=== PATIENT | female | born 1965 | race African-American/Black ===

== ENCOUNTER 2021-09-29 06:35 | Emergency (ER) | payer BC ==
--- NOTE | 2021-09-29 06:57 | ER ---
Nurse's Notes [facility] Name: Piotr Gupta Age: 56 yrs Sex: Female : 1965 Arrival Date: 09/29/2021 Time: 06:43 Bed Waiting Private MD: Diagnosis: Assessment: 09/29 06:55 Reassessment: Pt told registration they were going to go to urgent care instead. vc1 ED Course: 06:43 Patient arrived in ED. bp1 Administered Medications: No medications were administered Outcome: 06:56 Patient left the ED. vc1 Signatures: Magui Fink bp1 Emily Brady, RN RN vc1
== END 2021-09-29 06:56 | disposition left against medical advice (07) ==
LOC: ER 06:35
DX: Z02.9 Encounter for administrative examinations, unspecified (principal)

== ENCOUNTER 2022-06-26 14:15 | Emergency (ER) | payer BC ==
--- OUTSIDE RECORDS SUMMARY | 2022-06-26 14:21 | XMS REPORT | Continuity of Care Document ---
:1965 Author Organization [facility] t Address [address] [facility]. [address] [place] [address] Care Team Providers Name Role Phone Pcp MD, Abril Primary Care Physician Unavailable IRMA DOBSON Attending Clinician Unavailable YARIEL NOLAND Attending Clinician Unavailable NATALIA SLADE Attending Clinician Unavailable SHENA WOLFE Attending Clinician Unavailable WILMER NARAYAN Attending Clinician Unavailable YARIEL NOLAND Attending Clinician Unavailable Yariel Noland MD Attending Clinician Unavailable Amelia Chaves MD Attending Clinician Maricruz Kelley Attending Clinician JEMIMA KU Attending Clinician Unavailable FRANK HALEY Attending Clinician Unavailable [facility] Attending Clinician Unavailable ELIUD ZEPEDA Attending Clinician Unavailable MAC, EKG- Attending Clinician Unavailable CASSIE GARCIA Attending Clinician Unavailable LAB47 Attending Clinician Unavailable LISA SCHULER Attending Clinician Unavailable NOLBERTO SALAZAR Attending Clinician Unavailable MD BEAR Attending Clinician Unavailable SNEHAL CORREA Attending Clinician Unavailable Terrell Neely MD Attending Clinician [phone] TERRELL NEELY Attending Clinician Unavailable Jean Arriaga DO Attending Clinician KOMAL LYON Attending Clinician Unavailable NIRU LAU Attending Clinician Unavailable Ginger Arevalo MD Attending Clinician GINGER AREVALO Attending Clinician Unavailable GONZALEZ LIM Attending Clinician Unavailable Jemima Ku MD Attending Clinician LEESA KNAPP Attending Clinician Unavailable Kaitlynn Yarbrough MD Attending Clinician ANTHONY PENA Attending Clinician Unavailable Yusef Crowell MD Attending Clinician SAMSON HANDY Attending Clinician Unavailable YARIEL NOLAND Admitting Clinician Unavailable Payers Payer Name Policy Type Policy Number Effective Date Expiration Date S stephanie [facility] [id number] 2018 [place] ([place] 00:00:00 CAPITATED) [id number] BLUE/ESSENTIALS 00:00:00 [facility] [id number] 2015 00:00:00 Problems Condition Condition Condition Status Onset Resolution Last Treating Co mments Source Name Details Category Date Date Treatment Clinician Date Cystocele Cystocele Disease Active [facility] prolapse prolapse [facility] 00 Center Synovial Synovial Disease Active Kelse y cyst of cyst of 3-28 Seybold left left 00:00: - popliteal popliteal 00 Exte rna space space l 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 Seybold patellae patellae 00:00: - of left of left 00 Externa knee knee l Ocular Ocular Disease Active 2012-03 Serena migraine migraine 0-08 Seybol d 00:00: - 00 Externa l Migraine Migraine Disease Active Kelse y 1-30 Seybold 00:00: - 00 Externa l Elevated Elevated Disease Active Kelse y blood blood 1-14 Seybold pressure pressure 00:00: - 00 Externa l Allergies, Adverse Reactions, Alerts Allergy Allergy Status Severity Reaction(s) Onset Inactive Treating Comm ents Source Name Type Date Date Clinician NO KNOWN Allergy Active [facility] Social History Social Habit Start Date Stop Date Quantity Comments Source Gender identity 2018-12-25 Identifies as Serena Nora 22:57:25 female gender - External (finding) Sexual orientation 2018-12-25 Heterosexual Dorinda alisa Bakerybgovind 22:57:25 (finding) - External History SDOH Serena min Alcohol Frequency - Exter nal History SDOH Serena min Alcohol Std Drinks - Exte rnal History SDOH Serena min Alcohol Binge - External Exposure to 2022-06-11 2022-06-[address] [facility] SARS-CoV-2 (event) 00:00:00 06:09:00 [facility] Alcohol intake 2022-06-21 2022-06-21 Ex-drinker [facility] 00:00:00 00:00:00 (finding) [facility] Tobacco use and 2022-06-07 2022-06-07 Smokeless tobacco Ke rocío Seybold exposure 00:00:00 00:00:00 non-user - External History of Social 2021-08-31 2021-08-31 Serena Bakerybold function 00:00:00 00:00:00 - External Alcohol Comment 2018-08-25 2018-08-25 OCCASIONAL : Q 3 Petros ashton Seybold 00:00:00 00:00:00 WEEKS - External Sex [birth year] At [birth year] F SONIA Henao 00:00:00 00:00:00 [facility] Smoking Status Start Date Stop Date Source Never smoked tobacco [facility] Medications Ordered Filled Start Stop Current Ordering Indication Dosage Frequency Signature Comments Components Source Medication Medication Date Date Medication? Clinician (SIG) Name Name Multiple Yes Take by Serena Vitamins-Mi 4-24 mouth Seybold nerals 15:20: - (MULTIVITAM 29 Externa IN ADULTS l OR) omeprazole Yes 20mg QD Take [facility] (PriLOSEC[facility]22 [facility] 20 MG 14:15: (20 mg Medical capsule 01 total) by Center mouth in the morning. rizatriptan Yes 10mg Take [address] [facility] (MAXALT-LINE REPAIRER TOWER 4-22 tablet (10 Zelda kes ) 10 MG 14:15: mg total) Medic al disintegrat 01 by mouth Cent er ing tablet as needed for Migraine May repeat in 2 hours if needed. hydrOXYzine 0 Yes 25mg Take [address] [facility] (ATARAX) 25 4-22 tablet (25 Zelda kes MG tablet 14:15: mg total) Med ical 01 by mouth 3 Center (three) times daily as needed for Itching. albuterol 2022-0 Yes .63mg Take [address] (ACCUNEB) 4-21 (0.63 mg [facility] 0.63 mg/3 14:15: total) by Med ical mL 53 nebulizati Center nebulizer on every 6 solution (six) hours as needed for Wheezing. azithromyci 0 Yes 500mg QD Take [address] [facility] n 4-21 tablet [facility] (ZITHROMAX) 14:15: (500 mg Med ical 500 MG 53 total) by Center tablet mouth in the morning. codeine-gua 0 Yes 5mL Take [address] [facility] ifenesin 4-21 by mouth 3 [facility] (GUAIFENESI 14:15: (three) Med ical N AC) 53 times Center 10-100 mg/5 daily as mL liquid needed for Cough. predniSONE 0 Yes 1mg QD Take 1 [facility] (DELTASONE) 4-21 tablet (1 Sally es 1 MG tablet 14:15: mg total) M edical 53 by mouth Center in the morning. Acetaminoph 0 Yes 1{tbl} Q4H Take 1 Ke lsey en-Codeine 4-21 tablet by Jose faust (TYLENOL/CO 00:00: mouth - DEINE #3) 00 every 4 Externa 300-30 MG hours as l oral Tablet needed for pain Docusate 2022-0 Yes [id number] 100mg Take 1 Ke lsey Sodium 100 4-21 capsule Joseol d MG oral 00:00: (100 mg - Capsule 00 total) by Externa mouth 2 l times daily TRIMETHOPRI 2022-0 2022- Yes 1{tbl} Take 1 K elsey M-SULFAMETH 4-21 04-27 tablet by Se marie OXAZOLE 00:00: 04:59 mouth - (Bactrim 00 :00 every 12 Externa DS) 800-160 hours for l MG oral 5 days Tablet traZODone 2022- No 100mg QD Take [address] [facility] (DESYREL) 4-20 04-20 tablet [facility] 100 MG 06:09: 00:00 (100 mg Medical tablet 34 :00 total) by Center mouth nightly. Omeprazole Yes 20mg Take 1 Kelse y 20 MG oral 4-17 capsule Seybol d Delayed 00:00: (20 mg - Release 00 total) by Externa Capsule mouth l daily hydroCHLORO Yes [id number] TAKE 1 Serena thiazide 4-11 CAPSULE(12 Seybo ld 12.5 MG 00:00: .5 MG) BY - oral 00 MOUTH Externa Capsule DAILY l IRON OR 2022- No Take by Serena 4-10 04-10 mouth Seybold 15:29: 00:00 - 37 :00 Externa l Multiple Yes Take by Serena Vitamins-Mi 4-10 mouth Seybold nerals 15:29: - (MULTIVITAM 36 Externa IN ADULTS l OR) hydroCHLORO Yes [id number] 12.5mg Take 1 Serena thiazide 4-10 capsule Seybold 12.5 MG 00:00: (12.5 mg - oral 00 total) by Externa Capsule mouth l daily Multiple Yes Take by Serena Vitamins-Mi 4-06 mouth Seybold nerals 10:37: - (MULTIVITAM 18 Externa IN ADULTS l OR) IRON OR Yes Take by Serena 4-06 mouth Seybold 10:37: - 18 Externa l Multiple Yes Take by Serena Vitamins-Mi 3-28 mouth Seybold nerals 13:33: - (MULTIVITAM 31 Externa IN ADULTS l OR) IRON OR Yes Take by Serena 3-28 mouth Seybold 13:33: - 31 Externa l Multiple Yes Take by Serena Vitamins-Mi 1-20 mouth Seybold nerals 10:29: - (MULTIVITAM 03 Externa IN ADULTS l OR) IRON OR Yes Take by Serena 1-20 mouth Seybold 10:29: - 03 Externa l Multiple 2021-03 Yes Take by Serena Vitamins-Mi 0-11 mouth Seybold nerals 13:50: - (MULTIVITAM 07 Externa IN ADULTS l OR) IRON OR 2021-03 Yes Take by Serena 0-11 mouth Seybold 13:50: - 07 Externa l Docusate 2021-03 Yes [id number] 100mg Take 1 Ke lsey Sodium 100 0-11 capsule Seybol d MG oral 00:00: (100 mg - Capsule 00 total) by Externa mouth 2 l times daily Polyethylen 2021-03 Yes [id number] 17g Take 17 g Serena e Glycol 0-11 by mouth Seybold 3350 00:00: daily - (MiraLax) 00 Externa 17 g oral l Pack Lidocaine 5 2021-03 Yes [id number] 1{patch Place 1 Serena % apply 0-11 } patch onto Seybol d externally 00:00: the skin - Patch 00 every 24 Externa hours l Remove & Discard patch within 12 hours or as directed by MD Hunter 2021-03 Yes [id number] 100mg Take 1 Ke lsey Sodium 100 0-11 capsule Seybol d MG oral 00:00: (100 mg - Capsule 00 total) by Externa mouth 2 l times daily Polyethylen 2021-03 Yes [id number] 17g Take 17 g Serena e Glycol 0-11 by mouth Seybold 3350 00:00: daily - (MiraLax) 00 Externa 17 g oral l Pack Lidocaine 5 2021-03 Yes [id number] UNWRAP AND Serena % apply 0-11 APPLY 1 Seybold externally 00:00: PATCH TO - Patch 00 SKIN EVERY Externa 24 HOURS; l REMOVE AND DISCARD PATCH WITHIN 12 HOURS OR DIRECTED BY MD Hunter 2021-03 Yes [id number] 100mg Take 1 Ke lsey Sodium 100 0-11 capsule Seybol d MG oral 00:00: (100 mg - Capsule 00 total) by Externa mouth 2 l times daily Polyethylen 2021-03 Yes [id number] 17g Take 17 g Serena e Glycol 0-11 by mouth Seybold 3350 00:00: daily - (MiraLax) 00 Externa 17 g oral l Pack Lidocaine 5 2021-03 Yes [id number] UNWRAP AND Serena % apply 0-11 APPLY 1 Seybold externally 00:00: PATCH TO - Patch 00 SKIN EVERY Externa 24 HOURS; l REMOVE AND DISCARD PATCH WITHIN 12 HOURS OR DIRECTED BY MD Hunter 2021-03 Yes [id number] 100mg Take 1 Ke lsey Sodium 100 0-11 capsule Seybol d MG oral 00:00: (100 mg - Capsule 00 total) by Externa mouth 2 l times daily Polyethylen 2021-03 Yes [id number] 17g Take 17 g Serena e Glycol 0-11 by mouth Seybold 3350 00:00: daily - (MiraLax) 00 Externa 17 g oral l Pack Lidocaine 2021-03 Yes [id number] UNWRAP AND Serena % apply 0-11 APPLY 1 Seybold externally 00:00: PATCH TO - Patch 00 SKIN EVERY Externa 24 HOURS; l REMOVE AND DISCARD PATCH WITHIN 12 HOURS OR DIRECTED BY MD Hunter 2021-03 Yes [id number] 100mg Take 1 Ke lsey Sodium 100 0-11 capsule Seybol d MG oral 00:00: (100 mg - Capsule 00 total) by Externa mouth 2 l times daily Lidocaine 2021-03 Yes [id number] UNWRAP AND Serena % apply 0-11 APPLY 1 Seybold externally 00:00: PATCH TO - Patch 00 SKIN EVERY Externa 24 HOURS; l REMOVE AND DISCARD PATCH WITHIN 12 HOURS OR DIRECTED BY Lidocaine 2021-03 Yes [id number] UNWRAP AND Serena % apply 0-11 APPLY 1 Seybold externally 00:00: PATCH TO - Patch 00 SKIN EVERY Externa 24 HOURS; l REMOVE AND DISCARD PATCH WITHIN 12 HOURS OR DIRECTED BY MD Demarco 2021-03- No [id number] 17g Take 17 g Serena e Glycol 0-11 04-10 by mouth Seybol d 3350 00:00: 00:00 daily - (MiraLax) 00 :00 Externa 17 g oral l Pack Cephalexin 2021- No [id number] 500mg Take 1 Serena (Keflex) 10-03 [id number] capsule Seybo ld 500 MG oral 00:00: 00:00 (500 mg - Capsule 00 :00 total) by Externa mouth 2 l times daily Mupirocin 2021- No [id number] Apply 1 Serena (BACTROBAN) 10-03 [id number] applicatio Seybold 2 % apply 00:00: 00:00 n - externally 00 :00 topically Exte rna Ointment 3 times l daily hydrOXYzine 2021-0 Yes 25mg Q.[id number] Take 1 Serena HCl 25 MG 6-13 [id number] tablet (25 Seybold oral Tablet 00:00: 3D mg total) - 00 by mouth Externa every 8 l hours as needed for itching hydrOXYzine 2021-0 Yes 25mg Q.[id number] Take 1 Serena HCl 25 MG 6-13 [id number] tablet (25 Seybold oral Tablet 00:00: 3D mg total) - 00 by mouth Externa every 8 l hours as needed for itching hydrOXYzine 2021-0 Yes 25mg Q.[id number] Take 1 Serena HCl 25 MG 6-13 [id number] tablet (25 Seybold oral Tablet 00:00: 3D mg total) - 00 by mouth Externa every 8 l hours as needed for itching hydrOXYzine 2021-0 Yes 25mg Q.[id number] Take 1 Serena HCl 25 MG 6-13 [id number] tablet (25 Seybold oral Tablet 00:00: 3D mg total) - 00 by mouth Externa every 8 l hours as needed for itching hydrOXYzine 2021-0 Yes 25mg Q.[id number] Take 1 Serena HCl 25 MG 6-13 [id number] tablet (25 Seybold oral Tablet 00:00: 3D mg total) - 00 by mouth Externa every 8 l hours as needed for itching hydrOXYzine 2021-0 Yes 25mg Q.[id number] Take 1 Serena HCl 25 MG 6-13 [id number] tablet (25 Seybold oral Tablet 00:00: 3D mg total) - 00 by mouth Externa every 8 l hours as needed for itching diazePAM 2-0 2021- No 2mg Q.25D Take 1 Kelse y (Valium) 2 07-07 tablet (2 Sey bold MG oral 00:00: 00:00 mg total) - Tablet 00 :00 by mouth Externa every 6 l hours as needed for anxiety Take tablet 30 minutes before MRI Multiple 2021-0 Yes Take by Serena Vitamins-Mi 5-03 mouth Seybold nerals 15:48: (MULTIVITAM 41 IN ADULTS OR) IRON OR Yes Take by Serena 5-03 mouth Seybold 15:48: 41 Rizatriptan Yes May repeat Serena Benzoate 5-03 in 2 hours Seybo ld (Maxalt) 10 00:00: if needed MG oral 00 Tablet Rizatriptan 0 Yes May repeat Serena Benzoate 5-03 in 2 hours Seybo ld (Maxalt) 10 00:00: if needed - MG oral 00 Externa Tablet l Rizatriptan 0 Yes May repeat Serena Benzoate 5-03 in 2 hours Seybo ld (Maxalt) 10 00:00: if needed - MG oral 00 Externa Tablet l Rizatriptan Yes May repeat Serena Benzoate 5-03 in 2 hours Seybo ld (Maxalt) 10 00:00: if needed - MG oral 00 Externa Tablet l Rizatriptan Yes May repeat Serena Benzoate 5-03 in 2 hours Seybo ld (Maxalt) 10 00:00: if needed - MG oral 00 Externa Tablet l Rizatriptan 0 Yes May repeat Serena Benzoate 5-03 in 2 hours Seybo ld (Maxalt) 10 00:00: if needed - MG oral 00 Externa Tablet l Rizatriptan 0 Yes May repeat Serena Benzoate 5-03 in 2 hours Seybo ld (Maxalt) 10 00:00: if needed - MG oral 00 Externa Tablet l Rizatriptan 0 2021- No May repeat Serena Benzoate 1-28 05-03 in 2 hours Seyb old (Maxalt) 10 00:00: 00:00 if needed MG oral 00 :00 Tablet Multiple 2020-03 Yes Take by Serena Vitamins-Mi 1-30 mouth Seybold nerals 14:04: (MULTIVITAM 09 IN ADULTS OR) IRON OR 2020-03 Yes Take by Serena 1-30 mouth Seybold 14:04: 09 Rizatriptan 2020-03 Yes May repeat Serena Benzoate 1-12 in 2 hours Seybo ld (Maxalt) 10 00:00: if needed MG oral 00 Tablet Multiple Yes Take by Serena Vitamins-Mi 11-02 mouth Seybold nerals 10:03: (MULTIVITAM 32 IN ADULTS OR) IRON OR Yes Take by Serena 11-02 mouth Seybold 10:03: 32 Omeprazole 2020-0 Yes 20mg Take 1 Kelse y 20 MG oral 5-14 capsule Seybol d Delayed 00:00: (20 mg Release 00 total) by Capsule mouth daily Omeprazole 2020-0 Yes 20mg Take 1 Kelse y 20 MG oral 5-14 capsule Seybol d Delayed 00:00: (20 mg - Release 00 total) by Externa Capsule mouth l daily Omeprazole 2020-0 Yes 20mg Take 1 Kelse y 20 MG oral 5-14 capsule Seybol d Delayed 00:00: (20 mg - Release total) by Externa Capsule mouth l daily Omeprazole 2020-0 Yes 20mg Take 1 Kelse y 20 MG oral 5-14 capsule Seybol d Delayed 00:00: (20 mg - Release total) by Externa Capsule mouth l daily Omeprazole 2020-0 Yes 20mg Take 1 Kelse y 20 MG oral 5-14 capsule Seybol d Delayed 00:00: (20 mg - Release total) by Externa Capsule mouth l daily Omeprazole 2020-0 Yes 20mg Take 1 Kelse y 20 MG oral 5-14 capsule Seybol d Delayed 00:00: (20 mg - Release total) by Externa Capsule mouth l daily Omeprazole 2020-0 Yes 20mg Take 1 Kelse y 20 MG oral 5-14 capsule Seybol d Delayed 00:00: (20 mg Release 00 total) by Capsule mouth daily Omeprazole 2020-0 Yes 20mg Take 1 Kelse y 20 MG oral 5-14 capsule Seybol d Delayed 00:00: (20 mg Release 00 total) by Capsule mouth daily Fluticasone 2020- Yes 1{puff} Inhale 1 Serena -Salmeterol 3-18 puff into Daniel bold (Advair 00:00: the lungs Diskus) 00 2 times 250-50 daily MCG/DOSE inhalation AEROSOL POWDER, BREATH ACTIVATED Fluticasone Yes 1{puff} Inhale 1 Serena -Salmeterol 3-18 puff into Sey bold (Advair 00:00: the lungs Diskus) 00 2 times 250-50 daily MCG/DOSE inhalation AEROSOL POWDER, BREATH ACTIVATED Fluticasone Yes 1{puff} Inhale 1 Serena -Salmeterol 3-18 puff into Sey bold (Advair 00:00: the lungs Diskus) 00 2 times 250-50 daily MCG/DOSE inhalation AEROSOL POWDER, BREATH ACTIVATED Rizatriptan Yes May repeat Serena Benzoate 2-04 in 2 hours Seybo ld (Maxalt) 10 00:00: if needed MG oral Tab 00 hydrOXYzine 2019-0 Yes 25mg Q.[id number] Take 1 Serena HCl 25 MG 4-27 [id number] tablet (25 Seybold oral Tab 00:00: 3D mg total) 00 by mouth every 8 hours as needed for itching hydrOXYzine 2019-0 Yes 25mg Q8H Take 1 Dorinda ey HCl 25 MG 4-27 tablet (25 Seyb old oral Tab 00:00: mg total) 00 by mouth every 8 hours as needed for itching hydrOXYzine 2019-0 Yes 25mg Q8H Take 1 Dorinda ey HCl 25 MG 4-27 tablet (25 Seyb old oral Tab 00:00: mg total) 00 by mouth every 8 hours as needed for itching albuterol Yes 1{ampul Take [address] [facility] (ACCUNEB) 7-25 e} ampule by [facility] 0.63 mg/3 14:18: nebulizati Me dical mL 59 on every 6 Center nebulizer (six) solution hours as needed for Wheezing. azithromyci Yes 500mg QD Take [address] n 7-25 mg by [facility] (ZITHROMAX) 14:18: mouth Medic al 500 MG 59 daily. Center tablet codeine-gua Yes 5mL Take [address] [address] ifenesin 7-25 by mouth 3 [facility] (GUAIFENESI 14:18: (three) Med ical N AC) 59 times Center 10-100 mg/5 daily as mL liquid needed for Cough. predniSONE Yes 1mg QD Take [address] (DELTASONE) 7-25 by mouth Luke s 1 MG tablet 14:18: daily. [facility] efraín 59 [place] traZODone Yes 100mg QD Take [address] (DESYREL) 7-25 mg by [facility] 100 MG 14:18: mouth Medical tablet 59 nightly. [place] Albuterol Yes [id number] 2{puff} Q.25D Inhale 2 Serena HFA 108 (90 7-24 6 (two) Seybold Base) 00:00: puffs into MCG/ACT IN 00 the lungs AERS every 6 hours as needed Albuterol Yes [id number] 2{puff} Q.25D Inhale 2 Serena HFA 108 (90 7-24 6 (two) Seybold Base) 00:00: puffs into - MCG/ACT IN 00 the lungs Exte rna AERS every 6 l hours as needed Albuterol Yes [id number] 2{puff} Q.25D Inhale 2 Serena HFA 108 (90 7-24 6 (two) Seybold Base) 00:00: puffs into - MCG/ACT IN 00 the lungs Exte rna AERS every 6 l hours as needed Albuterol Yes [id number] 2{puff} Q.25D Inhale 2 Serena HFA 108 (90 7-24 6 (two) Seybold Base) 00:00: puffs into - MCG/ACT IN 00 the lungs Exte rna AERS every 6 l hours as needed Albuterol 2017- Yes [id number] 2{puff} Q.25D Inhale 2 Serean HFA 108 (90 7-24 6 (two) Seybold Base) 00:00: puffs into - MCG/ACT IN 00 the lungs Exte rna AERS every 6 l hours as needed Albuterol 2017- Yes [id number] 2{puff} Q.25D Inhale 2 Serena HFA 108 (90 7-24 6 (two) Seybold Base) 00:00: puffs into - MCG/ACT IN 00 the lungs Exte rna AERS every 6 l hours as needed Albuterol 2017- Yes [id number] 2{puff} Q6H Inhale 2 Serena HFA 108 (90 7-24 6 (two) Seybold Base) 00:00: puffs into MCG/ACT IN 00 the lungs AERS every 6 hours as needed Albuterol Yes [id number] 2{puff} Q.25D Inhale 2 Serena HFA 108 (90 7-24 6 (two) Seybold Base) 00:00: puffs into - MCG/ACT IN 00 the lungs Exte rna AERS every 6 l hours as needed Albuterol Yes [id number] 2{puff} Q6H Inhale 2 Serena HFA 108 (90 7-24 6 (two) Seybold Base) 00:00: puffs into MCG/ACT IN 00 the lungs AERS every 6 hours as needed Immunizations Ordered Immunization Filled Immunization Date Status Commen ts Source Name Name Shingles IM 2022-06-12 Completed Serena Seybol d (Shingrix) 00:00:00 - External Shingles IM 2021-12-12 Completed Serena Seybol d (Shingrix) 00:00:00 - External Influenza Virus 2021-12-12 Completed Serena Se ybold Vaccine, age 6 00:00:00 - External months and up Shingles IM 2021-12-12 Completed Serena Seybol d (Shingrix) 00:00:00 - External Influenza Virus 2021-12-12 Completed Serena Se ybold Vaccine, age 6 00:00:00 - External months and up Shingles IM 2021-12-12 Completed Serena Seybol d (Shingrix) 00:00:00 - External Influenza Virus 2021-12-12 Completed Serena Se ybold Vaccine, age 6 00:00:00 - External months and up Shingles IM 2021-12-12 Completed Serena Seybol d (Shingrix) 00:00:00 - External Influenza Virus 2021-12-12 Completed Serena Se ybold Vaccine, age 6 00:00:00 - External months and up Shingles IM 2021-12-12 Completed Serena Seybol d (Shingrix) 00:00:00 - External Influenza Virus 2021-12-12 Completed Serena Se ybold Vaccine, age 6 00:00:00 - External months and up Shingles IM 2021-12-12 Completed Serena Seybol d (Shingrix) 00:00:00 - External Influenza Virus 2021-12-12 Completed Serena Se ybold Vaccine, age 6 00:00:00 - External months and up Influenza Virus 2020-11-08 Completed Serena Se ybold Vaccine, age 6 00:00:00 months and up Influenza Virus 2020-11-08 Completed Serena Se ybold Vaccine, age 6 00:00:00 - External months and up Influenza Virus 2020-11-08 Completed Serena Se ybold Vaccine, age 6 00:00:00 - External months and up Influenza Virus 2020-11-08 Completed Serena Se ybold Vaccine, age 6 00:00:00 - External months and up Influenza Virus 2020-11-08 Completed Serena Se ybold Vaccine, age 6 00:00:00 - External months and up Influenza Virus 2020-11-08 Completed Serena Se ybold Vaccine, age 6 00:00:00 - External months and up Influenza Virus 2020-11-08 Completed Serena Se ybold Vaccine, age 6 00:00:00 - External months and up Influenza Virus 2020-11-08 Completed Serena Se ybold Vaccine, age 6 00:00:00 months and up Influenza Virus 2020-11-08 Completed Serena Se ybold Vaccine, age 6 00:00:00 months and up Covid-19 Vaccine 2020-04-08 Completed Serena hyatt Moderna (Spikevax), 00:00:00 Mrna-lnp, David Protein, Pf Covid-19 Vaccine 2020-04-08 Completed Serena hyatt Moderna (Spikevax), 00:00:00 - Ext ernal Mrna-lnp, David Protein, Pf Covid-19 Vaccine 2020-04-08 Completed Serena hyatt Moderna (Spikevax), 00:00:00 - Ext ernal Mrna-lnp, David Protein, Pf Covid-19 Vaccine 2020-04-08 Completed Serena hyatt Moderna (Spikevax), 00:00:00 - Ext ernal Mrna-lnp, David Protein, Pf Covid-19 Vaccine 2020-04-08 Completed Serena hyatt Moderna (Spikevax), 00:00:00 - Ext ernal Mrna-lnp, David Protein, Pf Covid-19 Vaccine 2020-04-08 Completed Serena hyatt Moderna (Spikevax), 00:00:00 - Ext ernal Mrna-lnp, David Protein, Pf Covid-19 Vaccine 2020-04-08 Completed Serena hyatt Moderna (Spikevax), 00:00:00 - Ext ernal Mrna-lnp, David Protein, Pf Covid-19 Vaccine 2020-04-08 Completed Serena hyatt (Moderna), Mrna-lnp, 00:00:00 David Protein, Pf, 100 Mcg/0.5ml,IM Covid-19 Vaccine 2020-04-08 Completed Serena hyatt (Moderna), Mrna-lnp, 00:00:00 David Protein, Pf, 100 Mcg/0.5ml,IM Covid-19 Vaccine 2020-03-15 Completed Serena hyatt Moderna (Spikevax), 00:00:00 Mrna-lnp, David Protein, Pf Covid-19 Vaccine 2020-03-15 Completed Serena hyatt Moderna (Spikevax), 00:00:00 - Ext ernal Mrna-lnp, David Protein, Pf Covid-19 Vaccine 2020-03-15 Completed Serena hyatt Moderna (Spikevax), 00:00:00 - Ext ernal Mrna-lnp, David Protein, Pf Covid-19 Vaccine 2020-03-15 Completed Serena hyatt Moderna (Spikevax), 00:00:00 - Ext ernal Mrna-lnp, David Protein, Pf Covid-19 Vaccine 2020-03-15 Completed Serena hyatt Moderna (Spikevax), 00:00:00 - Ext ernal Mrna-lnp, David Protein, Pf Covid-19 Vaccine 2020-03-15 Completed Serena hyatt Moderna (Spikevax), 00:00:00 - Ext ernal Mrna-lnp, David Protein, Pf Covid-19 Vaccine 2020-03-15 Completed Serena hyatt Moderna (Spikevax), 00:00:00 - Ext ernal Mrna-lnp, David Protein, Pf Covid-19 Vaccine 2020-03-15 Completed Serena S eybold (Moderna), Mrna-lnp, 00:00:00 David Protein, Pf, 100 Mcg/0.5ml,IM Covid-19 Vaccine 2020-03-15 Completed Serena cuellarbold (Moderna), Mrna-lnp, 00:00:00 David Protein, Pf, 100 Mcg/0.5ml,IM Influenza Virus 2020-01-07 Completed Serena Se ybold Vaccine, age 6 00:00:00 months and up Influenza Virus 2020-01-07 Completed Serena Se ybold Vaccine, age 6 00:00:00 - External months and up Influenza Virus 2020-01-07 Completed Serena Se ybold Vaccine, age 6 00:00:00 - External months and up Influenza Virus 2020-01-07 Completed Serena Se ybold Vaccine, age 6 00:00:00 - External months and up Influenza Virus 2020-01-07 Completed Serena Se ybold Vaccine, age 6 00:00:00 - External months and up Influenza Virus 2020-01-07 Completed Serena Se ybold Vaccine, age 6 00:00:00 - External months and up Influenza Virus 2020-01-07 Completed Serena Se ybold Vaccine, age 6 00:00:00 - External months and up Influenza Virus 2020-01-07 Completed Serena Se ybold Vaccine, age 6 00:00:00 months and up Influenza Virus 2020-01-07 Completed Serena Se ybold Vaccine, age 6 00:00:00 months and up Influenza Virus 2019-01-07 Completed Serena Se ybold Vaccine, age 6 00:00:00 months and up Influenza Virus 2019-01-07 Completed Serena Se ybold Vaccine, age 5 00:00:00 - External months and up Influenza Virus 2019-01-07 Completed Serena Se ybold Vaccine, age 5 00:00:00 - External months and up Influenza Virus 2019-01-07 Completed Serena Se ybold Vaccine, age 5 00:00:00 - External months and up Influenza Virus 2019-01-07 Completed Serena Se ybold Vaccine, age 5 00:00:00 - External months and up Influenza Virus 2019-01-07 Completed Serena Se ybold Vaccine, age 5 00:00:00 - External months and up Influenza Virus 2019-01-07 Completed Serena Se ybold Vaccine, age 5 00:00:00 - External months and up Influenza Virus 2019-01-07 Completed Serena Se ybold Vaccine, age 6 00:00:00 months and up Influenza Virus 2019-01-07 Completed Serena Se ybold Vaccine, age 5 00:00:00 months and up Influenza Virus 2018-01-20 Completed Serena Se ybold Vaccine, age 5 00:00:00 months and up Influenza Virus 2018-01-20 Completed Serena Se ybold Vaccine, age 5 00:00:00 - External months and up Influenza Virus 2018-01-20 Completed Serena Se ybold Vaccine, age 5 00:00:00 - External months and up Influenza Virus 2018-01-20 Completed Serena Se ybold Vaccine, age 5 00:00:00 - External months and up Influenza Virus 2018-01-20 Completed Serena Se ybold Vaccine, age 5 00:00:00 - External months and up Influenza Virus 2018-01-20 Completed Serena Se ybold Vaccine, age 5 00:00:00 - External months and up Influenza Virus 2018-01-20 Completed Serena Se ybold Vaccine, age 5 00:00:00 - External months and up Influenza Virus 2018-01-20 Completed Serena Se ybold Vaccine, age 5 00:00:00 months and up Influenza Virus 2018-01-20 Completed Serena Se ybold Vaccine, age 5 00:00:00 months and up Influenza Virus 2016-12-27 Completed Serena Se ybold Vaccine, age 5 00:00:00 months and up Influenza Virus 2016-12-27 Completed Serena Se ybold Vaccine, age 5 00:00:00 - External months and up Influenza Virus 2016-12-27 Completed Serena Se ybold Vaccine, age 5 00:00:00 - External months and up Influenza Virus 2016-12-27 Completed Serena Se ybold Vaccine, age 5 00:00:00 - External months and up Influenza Virus 2016-12-27 Completed Serena Se ybold Vaccine, age 5 00:00:00 - External months and up Influenza Virus 2016-12-27 Completed Serena Se ybold Vaccine, age 5 00:00:00 - External months and up Influenza Virus 2016-12-27 Completed Serena Se ybold Vaccine, age 5 00:00:00 - External months and up Influenza Virus 2016-12-27 Completed Serena Se ybold Vaccine, age 5 00:00:00 months and up Influenza Virus 2016-12-27 Completed Serena Se ybold Vaccine, age 5 00:00:00 months and up MMR- Measles, Mumps, 2015-06-06 Completed Dorinda ey Seybold Rubella 00:00:00 MMR- Measles, Mumps, 2015-06-06 Completed Dorinda ey Seybold Rubella 00:00:00 - External MMR- Measles, Mumps, 2015-06-06 Completed Dorinda ey Seybold Rubella 00:00:00 - External MMR- Measles, Mumps, 2015-06-06 Completed Dorinda ey Seybold Rubella 00:00:00 - External MMR- Measles, Mumps, 2015-06-06 Completed Dorinda ey Seybold Rubella 00:00:00 - External MMR- Measles, Mumps, 2015-06-06 Completed Dorinda ey Seybold Rubella 00:00:00 - External MMR- Measles, Mumps, 2015-06-06 Completed Dorinda ey Seybold Rubella 00:00:00 - External MMR- Measles, Mumps, 2015-06-06 Completed Dorinda ey Seybold Rubella 00:00:00 MMR- Measles, Mumps, 2015-06-06 Completed Dorinda ey Seybold Rubella 00:00:00 Tdap- (Boostrix, 2015-03-24 Completed Serena S eybold Adacel) 00:00:00 Tdap- (Boostrix, 2015-03-24 Completed Serena S eybold Adacel) 00:00:00 - External Tdap- (Boostrix, 2015-03-24 Completed Serena S eybold Adacel) 00:00:00 - External Tdap- (Boostrix, 2015-03-24 Completed Serena S eybold Adacel) 00:00:00 - External Tdap- (Boostrix, 2015-03-24 Completed Serena S eybold Adacel) 00:00:00 - External Tdap- (Boostrix, 2015-03-24 Completed Serena S eybold Adacel) 00:00:00 - External Tdap- (Boostrix, 2015-03-24 Completed Serena S eybold Adacel) 00:00:00 - External Tdap- (Boostrix, 2015-03-24 Completed Serena S eybold Adacel) 00:00:00 Tdap- (Boostrix, 2015-03-24 Completed Serena Cardoza eybold Adacel) 00:00:00 Influenza Virus 2014-12-03 Completed Serena Se ybold Vaccine, age 5 00:00:00 months and up Influenza Virus 2014-12-03 Completed Serena Se ybold Vaccine, age 5 00:00:00 - External months and up Influenza Virus 2014-12-03 Completed Serena Se ybold Vaccine, age 5 00:00:00 - External months and up Influenza Virus 2014-12-03 Completed Serena Se ybold Vaccine, age 5 00:00:00 - External months and up Influenza Virus 2014-12-03 Completed Serena Se ybold Vaccine, age 5 00:00:00 - External months and up Influenza Virus 2014-12-03 Completed Serena Se ybold Vaccine, age 5 00:00:00 - External months and up Influenza Virus 2014-12-03 Completed Serena Se ybold Vaccine, age 5 00:00:00 - External months and up Influenza Virus 2014-12-03 Completed Serena Se ybold Vaccine, age 5 00:00:00 months and up Influenza Virus 2014-12-03 Completed Serena Se ybold Vaccine, age 5 00:00:00 months and up Influenza Virus 2012-11-06 Completed Serena Se ybold Vaccine, age 5 00:00:00 months and up Influenza Virus 2012-11-06 Completed Serena Se ybold Vaccine, age 5 00:00:00 - External months and up Influenza Virus 2012-11-06 Completed Serena Se ybold Vaccine, age 5 00:00:00 - External months and up Influenza Virus 2012-11-06 Completed Serena Se ybold Vaccine, age 5 00:00:00 - External months and up Influenza Virus 2012-11-06 Completed Serena Se ybold Vaccine, age 5 00:00:00 - External months and up Influenza Virus 2012-11-06 Completed Serena Se ybold Vaccine, age 5 00:00:00 - External months and up Influenza Virus 2012-11-06 Completed Serena Se ybold Vaccine, age 5 00:00:00 - External months and up Influenza Virus 2012-11-06 Completed Serena Se ybold Vaccine, age 5 00:00:00 months and up Influenza Virus 2012-11-06 Completed Serena Se ybold Vaccine, age 5 00:00:00 months and up Tdap- (Boostrix, 2005-12-13 Completed Serena S eybold Adacel) 00:00:00 Tdap- (Boostrix, 2005-12-13 Completed Serena S eybold Adacel) 00:00:00 - External Tdap- (Boostrix, 2005-12-13 Completed Serena S eybold Adacel) 00:00:00 - External Tdap- (Boostrix, 2005-12-13 Completed Serena S eybold Adacel) 00:00:00 - External Tdap- (Boostrix, 2005-12-13 Completed Serena S eybold Adacel) 00:00:00 - External Tdap- (Boostrix, 2005-12-13 Completed Serena S eybold Adacel) 00:00:00 - External Tdap- (Boostrix, 2005-12-13 Completed Serena S eybold Adacel) 00:00:00 - External Tdap- (Boostrix, 2005-12-13 Completed Serena S eybold Adacel) 00:00:00 Tdap- (Boostrix, 2005-12-13 Completed Serena S eybold Adacel) 00:00:00 Vital Signs Vital Name Observation Time Observation Value Comments Source Systolic blood 2022-06-25 114 mm[Hg] Serena Bakerosvaldool d pressure 19:25:00 - External Diastolic blood 2022-06-25 80 mm[Hg] Serena Bakerosvaldoo ld pressure 19:25:00 - External Heart rate 2022-06-25 135 /[facility] - [facility] Body temperature 2022-06-25 36.11 Lilliam [facility] :25:00 - External Respiratory rate 2022-06-25 18 /min Serena Baker old :25:00 - External Body height 2022-06-25 165.1 cm [facility] :25:00 - External Body weight 2022-06-25 72.576 [facility] - External BMI 2022-06-25 26.63 kg/m2 [facility]25:[facility] - External HEIGHT 2022-06-21 165.1 cm 06:12:00 WEIGHT 2022-06-21 73.483 kg 06:12:00 HEIGHT 2022-06-07 165.1 cm 12:35:00 WEIGHT 2022-06-07 72.576 kg 12:35:00 HEIGHT 2022-06-21 165.1 cm 06:12:00 WEIGHT 2022-06-21 73.483 kg 06:12:00 HEIGHT 2022-06-07 165.1 cm 12:35:00 WEIGHT 2022-06-07 72.576 kg 12:35:00 HEIGHT 2022-06-21 165.1 cm 06:12:00 WEIGHT 2022-06-21 73.483 kg 06:12:00 HEIGHT 2022-06-07 165.1 cm 12:35:00 WEIGHT 2022-06-07 72.576 kg 12:35:00 Systolic blood 2022-06-11 142 mm[Hg] Serena Seybol d pressure 20:28:00 - External Diastolic blood 2022-06-11 96 mm[Hg] Serena Seybo ld pressure 20:28:00 - External Heart rate 2022-06-11 98 /min Serena Seybold 20:28:00 - External Body temperature 2022-06-11 36.61 Lilliam Serena Bakeryb old 20:28:00 - External Respiratory rate 2022-06-11 18 /min Serena Bakeryb old 20:28:00 - External Body height 2022-06-11 165.1 cm Serena Seybold 20:28: - External Body weight 2022-06-11 72.576 kg Serena Seybold 20:28:00 - External BMI 2022-06-11 26.63 kg/m2 Serena Seybold 20:28:00 - External Systolic blood 2022-06-07 141 mm[Hg] Rechecked Serena Seybol d pressure 15:49:00 vitals MD - External notified pt denies headache, dizziness left in no distress. Diastolic blood 2022-06-07 92 mm[Hg] Rechecked Serena Seybo ld pressure 15:49:00 vitals, MD - External notified pt denies headache, dizziness left in no distress. Heart rate 2022-06-07 100 /min Serena Seybold 15:49:00 - External Body weight 2022-06-07 72.938 kg Serena Seybold 15:35:00 - External BMI 2022-06-07 26.76 kg/m2 Serena Seybold 15:35:00 - External Systolic blood 2022-05-29 140 mm[Hg] Serena Seybol d pressure 18:33:00 - External Diastolic blood 2022-05-29 90 mm[Hg] Serena Seybo ld pressure 18:33:00 - External Heart rate 2022-05-29 74 /min Serena Seybold 18:33:00 - External Body temperature 2022-05-29 36.67 Lilliam Serena Bakeryb old 18:33:00 - External Respiratory rate 2022-05-29 18 /min Serena Bakeryb old 18:33:00 - External Body height 2022-05-29 165.1 cm Serena Seybold 18:33:00 - External Body weight 2022-05-29 73.483 kg Serena Seybold 18:33:00 - External BMI 2022-05-29 26.96 kg/m2 Serena Seybold 18:33:00 - External Systolic blood 2022-03-23 130 mm[Hg] Serena Seybol d pressure 16:29:00 - External Diastolic blood 2022-03-23 85 mm[Hg] Serena Seybo ld pressure 16:29:00 - External Heart rate 2022-03-23 90 /min Serena Seybold 16:29:00 - External Body temperature 2022-03-23 36.67 Lilliam Serena Garcia old 16:29:00 - External Respiratory rate 2022-03-23 16 /min Serena Bakeryb old 16:29:00 - External Body weight 2022-03-23 70.761 kg Serena Seybold 16:29:00 - External BMI 2022-03-23 25.96 kg/m2 Serena Seybold 16:29:00 - External Systolic blood 2021-12-12 160 mm[Hg] Serena Seybol d pressure 18:52:00 - External Diastolic blood 2021-12-12 80 mm[Hg] Serena Seybo ld pressure 18:52:00 - External Heart rate 2021-12-12 100 /min Serena Seybold 18:52:00 - External Body temperature 2021-12-12 36.56 Lilliam Serena Bakeryb old 18:52:00 - External Respiratory rate 2021-12-12 18 /min Serena Bakeryb old 18:52:00 - External Body weight 2021-12-12 71.578 kg Serena Seybold 18:52:00 - External BMI 2021-12-12 26.26 kg/m2 Serena Seybold 18:52:00 - External Systolic blood 2021-07-04 143 mm[Hg] Serena Seybol d pressure 20:49:00 Diastolic blood 2021-07-04 88 mm[Hg] Serena Seybo ld pressure 20:49:00 Heart rate 2021-07-04 92 /min Serena Seybold 20:49:00 Body temperature 2021-07-04 36.67 Lilliam Serena Bakeryb old 20:49:00 Respiratory rate 2021-07-04 18 /min Serena Bakeryb old 20:49:00 Body height 2021-07-04 165.1 cm Serena Seybold 20:49:00 Body weight 2021-07-04 73.483 kg Serena Seybold 20:49:00 BMI 2021-07-04 26.96 kg/m2 Serena Seybold 20:49:00 Body weight 2021-01-31 70.761 kg Serena Seybold 20:03:00 BMI 2021-01-31 25.96 kg/m2 Serena Seybold 20:03:00 Systolic blood 2021-01-31 120 mm[Hg] Serena Seybol d pressure 20:03:00 Diastolic blood 2021-01-31 82 mm[Hg] Serena Seybo ld pressure 20:03:00 Heart rate 2021-01-31 88 /min Serena Seybold 20:03:00 Body temperature 2021-01-31 36.83 Lilliam Serena Bakeryb old 20:03:00 Respiratory rate 2021-01-31 16 /min Serena Bakeryb old 20:03:00 Body height 2021-01-31 165.1 cm Serena Seybold 20:03:00 Systolic blood 2020-12-05 142 mm[Hg] Serena Seybol d pressure 20:22:00 Diastolic blood 2020-12-05 82 mm[Hg] Serena Seybo ld pressure 20:22:00 Heart rate 2020-12-05 99 /min Serena Melendez 20:22:00 Body temperature 2020-12-05 36.56 Lilliam Serena Garcia old 20:22:00 Respiratory rate 2020-12-05 16 /min Serena Garcia old 20:22:00 Body height 2020-12-05 165.1 cm Serena Melendez 20:22:00 Body weight 2020-12-05 68.493 kg Serena Melendez 20:22:00 BMI 2020-12-05 25.13 kg/m2 Serena Melendez 20:22:00 WEIGHT 2020-05-16 71.668 kg 18:46:00 WEIGHT 2020-05-16 71.668 kg 18:46:00 Heart rate 2022-06-22 96 /min [facility] 07:29:25 [facility] Respiratory rate 2022-06-22 18 /min [facility] 07:29:25 [facility] Oxygen saturation 2022-06-22 98 /min [facility] Arterial blood 07:29:25 [facility] nter by Pulse oximetry Systolic blood 2022-06-22 164 mm[Hg] [facility] pressure 07[facility]28[facility]45 [facility] Diastolic blood 2022-06-22 99 mm[Hg] [facility] pressure 07:28:45 [facility] Body temperature 2022-06-[address] [facility] 07:28:14 [facility] Body height 2022-06-[address] [facility] 06:12:00 [facility] Body weight 2022-06-[address] [facility] 06:12:00 [facility] BMI 2022-06-21 26.96 kg/m2 [facility] 06:12:00 [facility] Systolic blood 2020-05-16 126 mm[Hg] [facility] pressure 21:01:00 [facility] Center Diastolic blood 2020-05-16 75 mm[Hg] [facility] pressure 21:01:00 [facility] Heart rate 2020-05-16 80 /min [facility] 21:01:00 [facility] Body temperature 2020-05-[address] [facility] 21:01:00 [facility] Respiratory rate 2020-05-16 18 /min [facility] 21:01:00 [facility] Body weight 2020-05-16 71.668 kg [facility] 18:46:00 [facility] BMI 2020-05-16 26.29 kg/m2 [facility] 18:46:00 [facility] Oxygen saturation 2020-05-16 100 [facility] 18:46[facility]00 [facility] nter by Pulse oximetry Procedures Procedure Date / Time Performing Clinician Source Performed COLPORRHAPHY, ANTERIOR 2022-06-21 07:29:00 Ludin, [facility] COLPOPEXY, VAGINAL 2022-06-21 07:29:00 Ludin [facility] EXTRAPERITONEAL APPROACH [facility] CYSTOSCOPY 2022-06-21 07:29:00 Ludin, [facility] CBC W/PLT COUNT & AUTO 2022-06-21 06:41:00 [facility] BASIC METABOLIC PANEL 2022-06-21 06:41:00 Chaves, [facility] CBC W/PLT COUNT & AUTO 2022-06-21 06[facility]41[facility], ROUTINE 2022-05-29 20:02:00 Cassie Garcia - External URINALYSIS, COMPLETE 2022-05-29 20:02:00 Cassie Garciaey Seybgovind - External URINALYSIS, COMPLETE 2022-05-29 20:02:00 Cassie Garcia [facility] - External UA/M WITH CULTURE REFLEX 2020-12-05 22:00:00 Kaitlynn Yarbroughey Nora URINE CULTURE, ROUTINE 2020-12-05 22:00:00 Kaitlynn Yarbrough [facility] MICROSCOPIC EXAMINATION 2020-12-05 22:00:00 Kaitlynn Yarbrough Seybold CBC WITH 2020-12-05 21:00:00 Kaitlynn Yarbrough old DIFFERENTIAL/PLATELET BASIC METABOLIC PANEL (7) 2020-05-16 19:57:00 Crowell, [facility] TROPONIN I 2020-05-16 19:57:00 [facility] CBC W/PLT COUNT & AUTO 2020-05-16 19:57:00 Socrates [facility] D-DIMER 2020-05-16 19:57:00 [facility] CBC W/PLT COUNT & AUTO 2020-05-16 19:57:00 Socrates [facility] XR CHEST 1 VIEW PORTABLE / 2020-05-16 19:30:00 [facility] BEDSIDE [facility] REPORT OF PROCEDURE - 2020-05-16 00:00:00 Provider [facility] ENDOSCOPY SCAN Scanning [facility] Plan of Care Planned Activity Planned Date Details Comments Source Future Scheduled 2025-03-24 DTAP/TDAP/TD VACCINES [facility] 00:00:00 (3 - Td or Tdap) [code Medic [facility] = DTAP/TDAP/TD VACCINES (3 - Td or Tdap)] Future Scheduled 2025-03-24 DTAP/TDAP/TD VACCINES [facility] 00:00:00 (3 - Td or Tdap) [code Medic [facility] = DTAP/TDAP/TD VACCINES (3 - Td or Tdap)] Future Scheduled 2024-06-20 Screening for malignant [facility] 00:00:00 neoplasm of breast Medical C enter (procedure) [code = 854869530] Future Scheduled 2023-06-[address] [facility] Test 00:00:00 Counseling and Medical Cente r Screening (12+) [code = Tobacco Cessation Counseling and Screening (12+)] Future Scheduled 2022-05-10 Screening for malignant [facility] Test 00:00:00 neoplasm of breast Medical C enter (procedure) [code = 752095321] Future Scheduled 2022-03-[address] [facility] 00:00:00 (12+) [code = Medical Center DEPRESSION SCREENING (12+)] Future Scheduled 2020-11-02 INFLUENZA VACCINE (#1) [facility] 00:00:00 [code = INFLUENZA Medical Ce nter VACCINE (#1)] Future Scheduled 2020-06-03 COVID-19 VACCINE (3 - [facility] 00:00:00 Booster for Moderna [facility] series) [code = COVID-19 VACCINE (3 - Booster for Moderna series)] Future Scheduled 2020-03-[address] [facility] 00:00:00 (12+) [code = Medical Center DEPRESSION SCREENING (12+)] Future Scheduled 2014-01-28 SHINGLES VACCINES ([address] [facility] 00:00:00 2) [code = SHINGLES Medical Center VACCINES (1 of 2)] Future Scheduled 2014-01-28 SHINGLES VACCINES ([address] [facility] 00:00:00 2) [code = SHINGLES Medical Center VACCINES (1 of 2)] Future Scheduled 2009-01-28 Lipid panel (procedure) [facility] 00:00:00 [code = [id number]] Medical Ce nter Future Scheduled 2009-01-28 Lipid panel (procedure) [facility] 00:00:00 [code = 00985426] Medical Ce nter Future Scheduled 1985-01-28 Screening for malignant [facility] 00:00:00 neoplasm of cervix Medical C enter (procedure) [code = 710958719] Future Scheduled 1985-01-28 Screening for malignant [facility] 00:00:00 neoplasm of cervix Medical C enter (procedure) [code = 657620304] Future Scheduled 1982-01-28 HEPATITIS C SCREENING [facility] 00:00:00 [code = HEPATITIS C Medical Center SCREENING] Future Scheduled 1982-01-28 HEPATITIS C SCREENING [facility] 00:00:00 [code = HEPATITIS C Medical Center SCREENING] Future Scheduled 1976 COVID-19 VACCINE (1) [facility] 00:00:00 [code = COVID-[address] VACCINE (1)] Future Scheduled 1964 CT Colonography (combo) [facility] 00:00:00 [code = CT Colonography [facility] (combo)] Future Scheduled 1964 Screening for malignant [facility] 00:00:00 neoplasm of colon Medical Ce nter (procedure) [code = 578683200] Future Scheduled 1964 Screening for malignant [facility] Test 00:00:00 neoplasm of colon Medical Ce nter (procedure) [code = 794676413] Future Scheduled 1964 Screening for malignant [facility] Test 00:00:00 neoplasm of colon Medical Ce nter (procedure) [code = 714738530] Future Scheduled 1964 Screening for malignant [facility] Test 00:00:00 neoplasm of colon Medical Ce nter (procedure) [code = 425510081] Future Scheduled 1964 Screening for malignant [facility] Test 00:00:00 neoplasm of colon Medical Ce nter (procedure) [code = 339207749] Future Scheduled 1964 Sigmoidoscopy [code = [facility] Sigmoidoscopy] Medical Cente r Encounters Start End Encounter Admission Attending Care Care Encounter Source Date/Time Date/Time Type Type Clinicians Facility Department ID 2022-09-13 2022-09-13 Outpatient SERENA DOBSON [id number] Serena 08:45:00 08:45:00 IRMA Seyb old 2022-07-04 2022-07-04 Outpatient SERENA NOLAND [id number] [facility]rena 10:30:00 10:30:00 YARIEL Seybo ld 2022-07-02 2022-07-02 Outpatient SERENA SLADE [id number] [facility]rena 16:00:00 16:00:00 NATALIA Seybol d 2022-06-27 2022-06-27 Outpatient SERENA WOLFE [id number] [facility] 15:00:00 15:00:00 SHENA Seybo ld 2022-06-26 2022-06-26 Outpatient SERENA NOLAND [id number] [facility] 00:00:00 00:00:00 YARIEL Seybo ld 2022-06-26 2022-06-26 Outpatient SERENA RIVAS [id number] [facility] 00:00:00 00:00:00 Seybol d 2022-06-25 2022-06-25 Outpatient SERENA NARAYAN [id number] Se[facility] 14:40:00 14:40:00 WILMER Seybol d 2022-06-25 2022-06-25 Outpatient SERENA DOBSON [id number] [facility] 00:00:00 00:00:00 IRMA Garcia old 2022-06-25 2022-06-25 Outpatient SERENA NOLAND [id number] [facility]rena 00:00:00 00:00:00 YARIEL min 2022-06-21 2022-06-22 Outpatient EL LUDIN, [facility] [id number] [facility] 05:52:00 14:15:00 YARIEL 2022-06-21 2022-06-22 [facility] Ludin [facility] [id number] 05:52:00 14:15:00 Encounter [facility] 2022-06-22 2022-06-22 Outpatient SERENA NOLAND [id number] Serena 00:00:00 00:00:00 YARIEL Garciao pako 2022-06-22 2022-06-22 Outpatient SERENA RIVAS [id number] [facility]rena 00:00:00 00:00:00 Seybol d 2022-06-21 2022-06-21 Surgery Ludin [facility] [id number] 07:30:00 10:00:00 [facility] 2022-06-21 2022-06-21 Anesthesia Amelia Chaves [facility] [id number] 07:29:00 09:25:00 Event Maricruz Blair [facility] 2022-06-21 2022-06-21 Outpatient SERENA NOLAND [id number] Serena 07:30:00 07:30:00 YARIEL Seybo pako 2022-06-21 2022-06-21 Travel [facility] [id number] [facility] 00:[facility]00 00:00:00 [facility] 2022-06-20 2022-06-20 Outpatient SERENA RIVAS [id number] Serena 14:00:00 14:00:00 Seybol d 2022-06-20 2022-06-20 Outpatient SERENA RIVAS [id number] Serena 11:30:00 11:30:00 Seybol d 2022-06-20 2022-06-20 Outpatient SERENA RIVAS [id number] [facility] 09:20:00 09:20:00 Seybol d 2022-06-18 2022-06-18 Outpatient SERENA KU [id number] [facility] 00:00:00 00:00:00 JEMIMA Seybol d 2022-06-17 2022-06-17 Outpatient SERENA SLADE [id number] [facility] 00:00:00 00:00:00 NATALIA Seybol d 2022-06-14 2022-06-14 Outpatient SERENA HALEY [id number] [facility] 11:30:00 11:30:00 FRANK Seybol d 2022-06-12 2022-06-12 Outpatient HANK PENA [id number] [facility] 13:45:00 13:45:00 Seybol d 2022-06-12 2022-06-12 Outpatient SERENA RIVAS [id number] [facility] 11:40:00 11:40:00 Seybol d 2022-06-12 2022-06-12 Outpatient SERENA ZEPEDA [id number] [facility] 00:00:00 00:00:00 ELIUD Seybol d 2022-06-11 2022-06-11 Outpatient SERENA SLADE [id number] [facility] 15:45:00 15:45:00 NATALIA Seybol d 2022-06-07 2022-06-07 Outpatient EL [facility] [id number] [facility] 13:04:46 23:59:00 2022-06-07 2022-06-07 [facility] [id number] 12:00:00 23:59:00 Encounter [facility] 2022-06-07 2022-06-07 Outpatient SERENA ZEPEDA [id number] Serena 11:00:00 11:00:00 ELIUD Seybol d 2022-06-07 2022-06-07 [facility] [id number] [facility] 00:[facility] 00:00:00 [facility] 2022-05-29 2022-05-29 Outpatient MAC, EKG- SERENA RIVAS [id number] Serena 15:00:00 15:00:00 Seybol d 2022-05-29 2022-05-29 Outpatient CASSIE GARCIA SERENA SERENA [id number] Se[facility] 13:40:00 13:40:00 Seybol d 2022-05-04 2022-05-04 Outpatient SERENA RIVAS [id number] [facility] 16:00:00 16:00:00 Seybol d 2022-05-04 2022-05-04 Outpatient DUANE SERENA RIVAS [id number] [facility] 15:00:00 15:00:00 ELIUD Seybol d 2022-04-17 2022-04-17 Outpatient SERENA RIVAS [id number] [facility] 00:00:00 00:00:00 Seybol d 2022-04-17 2022-04-17 Outpatient SERENA NOLAND [id number] [facility] 00:00:00 00:00:00 YARIEL Seybo ld 2022-04-13 2022-04-13 Outpatient LAB47 SERENA RIVAS [id number] [facility] 11:10:00 11:10:00 Seybol d 2022-04-10 2022-04-10 Outpatient LAB47 SERENA RIVAS [id number] Serena 15:55:00 15:55:00 Seybol d 2022-03-27 2022-03-27 Outpatient CASSIE GARCIA SERENA RIVAS [id number] [facility] 13:40:00 13:40:00 Seybol d 2022-03-24 2022-03-24 Outpatient SERENA NOLAND [id number] [facility] 00:00:00 00:00:00 YARIEL Seybo ld 2022-03-23 2022-03-23 Outpatient SERENA NOLAND [id number] [facility] 10:00:00 10:00:00 YARIEL Seybo ld 2022-03-02 2022-03-02 Outpatient SERENA SCHULER [id number] [facility] 13:30:00 13:30:00 AYSENUR Seybol d 2022-03-01 2022-03-01 Outpatient OKSERENA VILLARREAL [id number] [place] 14:00:00 14:00:00 NOLBERTO Seybol d 2021-12-15 2021-12-15 Outpatient ANDRÉS SERENA RVIAS [id number] [facility] 00:00:00 00:00:00 MD GISEL Seybol d 2021-12-15 2021-12-15 Outpatient SERENA CORREA [id number] [facility] 00:00:00 00:00:00 SNEHAL Seybol d 2021-12-14 2021-12-14 Outpatient SERENA CORREA [id number] [place] 14:00:00 14:00:00 SNEHAL Seybol d 2021-12-12 2021-12-12 Outpatient SERENA ASLAZAR [id number] [place] 14:00:00 14:00:00 NOLBERTO Seybol d 2021-12-07 2021-12-07 Outpatient SERENA CORREA [id number] [place] 15:00:00 15:00:00 SNEHAL Seybol d 2021-12-05 2021-12-05 Outpatient SERENA SALAZAR [id number] [place] 11:15:00 11:15:00 NOLBERTO Seybol d 2021-10-10 2021-10-10 Outpatient SERENA DOBSON [id number] Serena 16:00:00 16:00:00 IRMA Seyb old 2021-10-03 2021-10-03 Office Alton Neely [id number] [place] 14:15:00 14:30:00 Visit Terrell Gregg 350.1.13.13 Se ybold Somogyi 1.2.7.2.686 [id number] 2021-10-03 2021-10-03 Outpatient SERENA NEELY [id number] [place] 00:00:00 00:00:00 TERRELL Seybol d 2021-09-29 2021-09-29 Office Alton Neely [id number] [place] 08:30:00 08:45:00 Visit Terrell Gregg 350.1.13.13 Se ybold Somogyi 1.2.7.2.686 [id number] 2021-08-31 2021-08-31 Office FLOYD Arriaga [id number] [place]rena 16:30:00 17:00:00 Visit [facility] 350.1.13.13 Seybold DIAGNOSTI 1.2.7.2.686 [facility] [id number] 2021-08-15 2021-08-15 Outpatient SERENA LYON [id number] [place] 00:00:00 00:00:00 KOMAL Garciao ld 2021-08-07 2021-08-07 Outpatient SERENA RIVAS [id number] [place] 15:00:00 15:00:00 Seybol d 2021-07-07 2021-07-07 Outpatient SERENA LYON [id number] [place] 00:00:00 00:00:00 KOMAL min 2021-07-07 2021-07-07 Outpatient SERENA LYON [id number] [place] 00:00:00 00:00:00 KOMAL Bakerybo ld 2021-07-06 2021-07-06 Outpatient SERENA LAU [id number] [place] 00:00:00 00:00:00 NIRU Garciaol d 2021-07-06 2021-07-06 Outpatient SERENA LYON [id number] [place] 00:00:00 00:00:00 KOMAL Garciao ld 2021-07-04 2021-07-04 Office HANK Arevalo 1.2.840.114 [id number] [place] 16:15:00 16:30:00 Visit [facility] 350.1.13.13 Seybold 1.2.7.2.686 [id number] 2021-07-04 2021-07-04 Outpatient SERENA RIVAS [id number] [place] 13:45:00 13:45:00 Seybol d 2021-07-04 2021-07-04 Outpatient SERENA LYON [id number] [place] 00:00:00 00:00:00 KOMAL min 2021-06-30 2021-06-30 Outpatient SERENA LYON [id number] [place] 11:30:00 11:30:00 KOMAL Seybo ld 2021-06-30 2021-06-30 Outpatient SERENA LYON [id number] [place] 00:00:00 00:00:00 KOMAL Seybo ld 2021-06-15 2021-06-15 Outpatient SERENA LYON [id number] [place] 14:30:00 14:30:00 KOMAL Seybo ld 2021-03-31 2021-03-31 Outpatient [facility] SERENA RIVAS [id number] [place] 00:00:00 00:00:00 MD GISEL Seybol d 2021-03-30 2021-03-30 Outpatient SERENA AREVALO [id number] [place] 00:00:00 00:00:00 GINGER Seybol d 2021-03-22 2021-03-22 Outpatient SERENA LYON [id number] [place] 00:00:00 00:00:00 KOMAL Seybo ld 2021-03-17 2021-03-17 Outpatient SERENA RIVAS [id number] [place] 16:00:00 16:00:00 Seybol d 2021-03-10 2021-03-10 Outpatient LAB SERENA RIVAS [id number] [place] 11:45:00 11:45:00 Seybol d 2021-03-10 2021-03-10 Outpatient SERENA LYON [id number] [place] 10:45:00 10:45:00 KOMAL Seybo ld 2021-03-02 2021-03-02 Outpatient SERENA LYON [id number] [place] 15:45:00 15:45:00 KOMAL Seybo ld 2021-02-15 2021-02-15 Outpatient SERENA LYON [id number] [place] 00:00:00 00:00:00 KOMAL Seybo ld 2021-02-08 2021-02-08 Outpatient SERENA DOBSON [id number] [place] 10:45:00 10:45:00 IRMA Seyb old 2021-02-07 2021-02-07 Outpatient SERENA LIM [id number] [place] 00:00:00 00:00:00 RHONDAH Seybol d 2021-01-31 2021-01-31 Office FLOYD Ku [id number] [place] 14:00:00 14:15:00 Visit Jemima TREJO 350.1.13.13 Seybold DIAGNOSTI 1.2.7.2.686 [facility] [id number] 2021-01-31 2021-01-31 Outpatient ANDRÉS RIVAS [id number] [place] 00:00:00 00:00:00 MD GISEL Seybol d 2020-12-28 2020-12-28 Outpatient LEESA KNAPP [id number] [place] 09:15:00 09:15:00 Seybol d 2020-12-14 2020-12-14 Outpatient LEESA KNAPP [id number] [place] 13:15:00 13:15:00 Seybol d 2020-12-13 2020-12-13 Outpatient SERENA RIVAS [id number] [place] 08:45:00 08:45:00 Seybol d 2020-12-05 2020-12-05 Outpatient LAB47 SERENA RIVAS [id number] [place] 15:55:00 15:55:00 Seybol d 2020-12-05 2020-12-05 Office ANTHONY Yarbrough [id number] [place] 14:58:28 15:13:28 Visit Kaitlynn 350.1.13.13 Se ybold 1.2.7.2.686 [id number] 2020-11-14 2020-11-14 Outpatient INJ, SERENA RIVAS [id number] [place] 16:00:00 16:00:00 ANTHONY Garciao ld 2020-11-11 2020-11-11 Outpatient INJ, SERENA RIVAS [id number] [place] 14:00:00 14:00:00 ANTHONY Garciao ld 2020-11-09 2020-11-09 Outpatient LAB47 SERENA RIVAS [id number] [place] 11:30:00 11:30:00 Seybol d 2020-11-08 2020-11-08 Outpatient LAB47 SERENA RIVAS [id number] [place] 13:30:00 13:30:00 Seybol d 2020-11-08 2020-11-08 Outpatient SERENA PENA [id number] [place] 13:00:00 13:00:00 PEARLAND Seybo ld 2020-11-03 2020-11-03 Outpatient SERENA KU [id number] [place] 00:00:00 00:00:00 JEMIMA Seybol d 2020-11-02 2020-11-02 Outpatient LEESA KNAPP [id number] [place] 10:15:00 10:15:00 Seybol d 2020-11-02 2020-11-02 Outpatient SERENA DOBSON [id number] [place] 00:00:00 00:00:00 IRMA Seyb old 2020-10-26 2020-10-26 Outpatient LEESA KNAPP [id number] [place] 15:00:00 15:00:00 Seybol d 2020-10-20 2020-10-20 Outpatient LAB47 SERENA RIVAS [id number] [place] 12:00:00 12:00:00 Seybol d 2020-10-19 2020-10-19 Outpatient LAB47 SERENA RIVAS [id number] [place] 09:55:00 09:55:00 Seybol d 2020-10-19 2020-10-19 Outpatient SERENA RIVAS [id number] [place] 09:35:00 09:35:00 Seybol d 2020-10-19 2020-10-19 Outpatient LEESA KNAPP [id number] [place] 09:00:00 09:00:00 Seybol d 2020-10-15 2020-10-15 Outpatient ANDRÉS RIVAS [id number] [place] 00:00:00 00:00:00 MD GISEL Seybol d 2020-10-10 2020-10-10 Outpatient SERENA KU [id number] [place] 11:15:00 11:15:00 JEMIMA Seybol d 2020-05-16 2020-05-16 Emergency ER Yusef Crowell [facility] [id number] [facility] 18:59:00 21:28:00 [facility] 2020-05-16 2020-05-16 Emergency ER [facility] [id number] [facility] 18:30:00 18:30:00 Results Test Description Test Time Test Comments Results Result Comments Source BASIC METABOLIC PANEL 2022-06-21 07:25:03 Test Item Value Reference Range Interpretation Comme nts SODIUM (BEAKER) (test 142 meq/L 136-145 code = 381) POTASSIUM (BEAKER) 3.9 meq/L 3.5-5.1 (test code = 379) CHLORIDE (BEAKER) (test 107 meq/L 98-107 code = 382) CO2 (BEAKER) (test code 28 meq/L 22-29 = 355) BLOOD UREA NITROGEN 12 mg/dL 7-21 (BEAKER) (test code = 354) CREATININE (BEAKER) 0.85 mg/dL 0.57-1.25 (test code = 358) GLUCOSE RANDOM (BEAKER) 131 mg/dL 70-105 H (test code = 652) CALCIUM (BEAKER) (test 9.4 mg/dL 8.4-10.2 code = 697) EGFR (BEAKER) (test 79 mL/min/1.73 sq In terpretation of eGFR values code = 1092) m Stage Descripti on Result G1 Normal or high >=90 G2 Mildly decreased 60-89 G3a Mildly to moderately 45-5 9 G3b Moderately to severely 30- 44 G4 Severly decreased 15-29 G5 Kidney failure <15Repo rted eGFR is based on the CK D-EPI 2020 equation that d oes not use a race coefficien tEstimated GFR is not as accurate as Creatinine Clearance in pr edicting glomerular filt ration rate. Estimated GFR i s not applicable for dialysis georges haro Clinical Quality Rn ID - [id number] W/PLT COUNT & AUTO [id number] 07:05:40 Test Item Value Reference Range Interpretation Comments WHITE BLOOD CELL COUNT (BEAKER) 6.1 K/ L 3.5-10.5 (test code = 775) RED BLOOD CELL COUNT (BEAKER) 4.37 M/ L 3.93-5.22 (test code = 761) HEMOGLOBIN (BEAKER) (test code = 12.9 GM/DL 11.2-15.7 410) HEMATOCRIT (BEAKER) (test code = 40.0 % 34.1-44.9 411) MEAN CORPUSCULAR VOLUME (BEAKER) 92 fL 79-95 (test code = 753) MEAN CORPUSCULAR HEMOGLOBIN 29.5 pg 25.6-32.2 (BEAKER) (test code = 751) MEAN CORPUSCULAR HEMOGLOBIN CONC 32.3 GM/DL 32.2-35.5 (BEAKER) (test code = 752) RED CELL DISTRIBUTION WIDTH 12.4 % 11.7-14.4 (BEAKER) (test code = 412) PLATELET COUNT (BEAKER) (test 243 K/CU MM 150-450 code = 756) MEAN PLATELET VOLUME (BEAKER) 9.6 fL 9.4-12.3 (test code = 754) NUCLEATED RED BLOOD CELLS 0 /100 WBC 0-0 (BEAKER) (test code = 413) NEUTROPHILS RELATIVE PERCENT 42 % (BEAKER) (test code = 429) LYMPHOCYTES RELATIVE PERCENT 47 % (BEAKER) (test code = 430) MONOCYTES RELATIVE PERCENT 6 % (BEAKER) (test code = 431) EOSINOPHILS RELATIVE PERCENT 4 % (BEAKER) (test code = 432) BASOPHILS RELATIVE PERCENT 1 % (BEAKER) (test code = 437) NEUTROPHILS ABSOLUTE COUNT 2.60 K/ L 1.56-6.13 (BEAKER) (test code = 670) LYMPHOCYTES ABSOLUTE COUNT 2.85 K/ L 1.18-3.74 (BEAKER) (test code = 414) MONOCYTES ABSOLUTE COUNT (BEAKER) 0.39 K/ L 0.24-0.36 H (test code = 415) EOSINOPHILS ABSOLUTE COUNT 0.24 K/ L 0.04-0.36 (BEAKER) (test code = 416) BASOPHILS ABSOLUTE COUNT (BEAKER) 0.03 K/ L 0.01-0.08 (test code = 417) IMMATURE GRANULOCYTES-RELATIVE 0.30 % 0.00-1.00 PERCENT (BEAKER) (test code = 2801) UA/M WITH CULTURE [id number] 09:08:00 Test Item Value Reference Range Interpretation Comments SPECIFIC GRAVITY 1.005-1.030 (test code = 2965-2) PH (test code = 5.0-7.5 5803-2) URINE-COLOR (test Yellow Yellow code = 5778-6) APPEARANCE (test code Clear Clear = 5767-9) WBC ESTERASE (test 1+ Negative A code = 5799-2) PROTEIN (test code = Negative Negative/Trace 31285-0) GLUCOSE (test code = Negative Negative 2349-9) KETONES (test code = Negative Negative 2514-8) OCCULT BLOOD (test Negative Negative code = 5794-3) BILIRUBIN (test code Negative Negative = 5770-3) UROBILINOGEN,SEMI-QN 0.2 mg/dL 0.2-1.0 (test code = 39927-7) NITRITE, URINE (test Negative Negative code = 5802-4) MICROSCOPIC See below: Microscopic was EXAMINATION (test indicated and was code = 38199-8) performed. URINALYSIS REFLEX This speci men has (test code = 939583) reflexe d to a Urine Culture. JAVID (test code = JAVID) [facility] results reported in Eastern Time. [facility] Clinical Information:SRC :Urine ?[facility] Source of Specimen:Urine Lab Interpretation Abnormal (test code = 52503-2) Serena SeyboldMICROSCOPIC [id number] 09:08:00 Test Item Value Reference Range Interpretation Comments WBC (test code = 30 See_Comment A [Automated 5821-4) message] The system which generated this result transmit arsenio reference range : 0 - 5 /hpf. The reference range was not used to interpret this result as normal/abnormal . RBC (test code = None seen See_Comment [Automated 20217-1) message] The system which generated this result transmit arsenio reference range : 0 - 2 /hpf. The reference range was not used to interpret this result as normal/abnormal . EPITHELIAL CELLS (NON >10 See_Comment A [Auto mated RENAL) (test code = message] The 5787-7) system which generated this result transmit arsenio reference range : 0 - 10 /hpf. The reference range was not used to interpret this result as normal/abnormal . CASTS (test code = None seen None seen /lpf 20096-9) BACTERIA (test code = None seen None seen/Few 5769-5) JAVID (test code = JAVID) [facility] results reported in Eastern Time. [facility] Clinical Information:SRC :Urine ?[facility] Source of Specimen:Urine Lab Interpretation Abnormal (test code = 64743-2) Serena Naqvi CULTURE, [id number] 09:08:00 Test Item Value Reference Range Interpretation Comments RESULT 1 (test code = No growth 630-4) JAVID (test code = JAVID) [facility] results reported in Eastern Time. [facility] Clinical Information:SRC:Urine ?[facility] Source of Specimen:Urine Serena ViramontesC WITH DIFFERENTIAL/[id number] 09:08:00 Test Item Value Reference Range Interpretation Comments WHITE BLOOD CELL See_Comment [Automated (WBC) COUNT (test message] T he code = 6690-2) system which generated this result transmit arsenio reference range : 3.4 - 10.8 x10E3/uL. The reference range was not used to interpret this result as normal/abnormal . RED BLOOD CELL (RBC) See_Comment [Autom ated COUNT (test code = message] The 789-8) system which generated this result transmit arsenio reference range : 3.77 - 5.28 x10E6/uL. The reference range was not used to interpret this result as normal/abnormal . HEMOGLOBIN (test code 12.1 g/dL 11.1-15.9 = 718-7) HEMATOCRIT (test code 38.6 % 34.0-46.6 = 4544-3) MCV (test code = 88 fL 79-97 787-2) MCH (test code = 27.6 pg 26.6-33.0 785-6) MCHC (test code = 31.3 g/dL 31.5-35.7 L 786-4) RDW (test code = 13.7 % 11.7-15.4 788-0) PLATELETS (test code See_Comment [Autom ated = 777-3) message] The system which generated this result transmit arsenio reference range : 150 - 450 x10E3/uL. The reference range was not used to interpret this result as normal/abnormal . NEUTROPHILS (test 44 % Not Estab. code = 770-8) LYMPHS (test code = 43 % Not Estab. 736-9) MONOCYTES (test code 9 % Not Estab. = 5905-5) EOS (test code = 3 % Not Estab. 713-8) BASOS (test code = 1 % Not Estab. 706-2) NEUTROPHILS See_Comment [Automated (ABSOLUTE) (test code messag e] The = 751-8) system which generated this result transmit arsenio reference range : 1.4 - 7.0 x10E3/uL. The reference range was not used to interpret this result as normal/abnormal . LYMPHS (ABSOLUTE) See_Comment [Automate d (test code = 731-0) message] The system which generated this result transmit arsenio reference range : 0.7 - 3.1 x10E3/uL. The reference range was not used to interpret this result as normal/abnormal . MONOCYTES(ABSOLUTE) See_Comment [Automa arsenio (test code = 742-7) message] The system which generated this result transmit arsenio reference range : 0.1 - 0.9 x10E3/uL. The reference range was not used to interpret this result as normal/abnormal . EOS (ABSOLUTE) (test See_Comment [Autom ated code = 711-2) message] The system which generated this result transmit arsenio reference range : 0.0 - 0.4 x10E3/uL. The reference range was not used to interpret this result as normal/abnormal . BASO (ABSOLUTE) (test See_Comment [Auto mated code = 704-7) message] The system which generated this result transmit arsenio reference range : 0.0 - 0.2 x10E3/uL. The reference range was not used to interpret this result as normal/abnormal . IMMATURE GRANULOCYTES 0 % Not Estab. (test code = 72281-7) IMMATURE GRANS (ABS) See_Comment [Autom ated (test code = 12224-3) messag e] The system which generated this result transmit arsenio reference range : 0.0 - 0.1 x10E3/uL. The reference range was not used to interpret this result as normal/abnormal . JAVID (test code = JAVID) [facility] results reported in Eastern Time. [facility] Clinical Information:SRC :Blood, venous*Venipunc ture ? [facility] Source of Specimen:Blood, venous*Venipunc Lab Interpretation Abnormal (test code = 30698-4) Serena MelendezD-dimer, [id number] 20:27:00 Test Item Value Reference Range Interpretation Comments D-Dimer, Quant (test 0.93 See_Comment H Final I nformation code = 51303-3) (Auto Output ) [Automated message] The system which generated this result transmitted reference range : <0.50 MG/L FEU. The reference range was not used to interpr et this result as normal/abnormal . JAVID (test code = REGARDING D-DIMER JAVID) RESULTS: The 98% NPV (Negative Predictive Value) for DVT/PE exclusion is 0.50 mg/L FEU as suggested by the clinical quality rn and as approved by the FDA. Lab Interpretation Abnormal (test code = 64460-5) [id number] 20:27:00 Test Item Value Reference Range Interpretation Comments D-DIMER QUANTITATIVE 0.93 MG/L FEU <0.50 H Final Information (BEAKER) (test code = (Auto Output) 671) REGARDING D-DIMER RESULTS: The 98% NPV (Negative Predictive Value) for DVT/PE exclusion is 0.50 mg/LFEU as suggested by the clinical quality rn and as approved by the FDA.Troponin [id number] 20:26:00 Test Item Value Reference Range Interpretation Comments Troponin I (test code = <0.03 0.00-0.15 51470-6) JAVID (test code = JAVID) Troponin I (TnI) levels must be interpreted in the context of the presenting symptoms and the clinical findings. Elevated TnI levels indicate myocardial damage, but are not specific for ischemic heart disease. Elevated TnI levels are seen in patients with other cardiac conditions (including myocarditis and congestive heart failure), and slight TnI elevations occur in patients with other conditions, including sepsis, renal failure, acidosis, acute neurological disease, and persistent tachyarrhythmia.Opera tor ID - [id number] Lab Interpretation (test Normal code = 66932-1) [facility] [id number] 20:26:00 Test Item Value Reference Range Interpretation Comments TROPONIN I (BEAKER) (test code = 397) < ng/mL 0.00-0.15 Troponin I (TnI) levels must be interpreted in the context of the presenting symptoms and the clinical findings. Elevated TnI levels indicate myocardial damage, but are not specific for ischemic heart disease. Elevated TnI levels are seen in patients with other cardiac conditions (including myocarditis and congestive heart failure), and slight TnI elevations occur in patients with other conditions, including sepsis, renal failure, acidosis, acute neurological disease, and persistent tachyarrhythmia.Clinical Quality Rn ID - [id number], CHEST, 1 VIEW, NON [id number] 20:22:00Reason for exam:->Chest Pain [facility] : 1965 Sex: FFINAL REPORT History: Chest pain. Comparison: 09/25/2017 Findings: A single view of the chest is submitted. The cardiomediastinal contours are unremarkable. There is no focal consolidation, pneumothorax, large pleural effusion or evidence of overt pulmonary edema. There is no acute bony abnormality. Impression: No acute abnormality. Signed: Suzan Bustillo [facility] Verified Date/Time:05/16/2020 20:22:14 Basic metabolic [id number] 20:19:00 Test Item Value Reference Range Interpretation Comments Sodium (test code = 140 meq/L 161-139 6367-2) Potassium (test code = 4.1 meq/L 3.6-5.5 Speci men 2823-3) moderately hemolyzed Chloride (test code = 106 meq/L 98-106 2075-0) CO2 (test code = 24 meq/L -29 2027-9) BUN (test code = 8 mg/dL 10-26 L 3094-0) Creatinine (test code 0.83 mg/dL 0.50-1.20 Specim en = 2160-0) moderately hemolyzed Glucose (test code = 85 mg/dL 70-110 2345-7) Calcium (test code = 9.1 mg/dL 8.5-10.5 54522-8) EGFR (test code = 86 mL/min/1.73 [place] [address]-8) NOT ACCURATE CREATININE CLEARANCE IN PREDICTING GLOMERULAR FILTRATION RATE . ESTIMATED GFR I S NOT APPLICABLE FOR DIALYSIS PATIENTS. JAVID (test code = JAVID) Clinical Quality Rn ID - [id number] r ID - [id number] r ID - [id number] r ID - [id number] r ID - [id number] r ID - [id number] r ID - [id number] r ID - [id number] r ID - [id number] r ID - [id number] r ID - [id number] r ID - [id number] Lab Interpretation Abnormal (test code = 44651-0) [facility] METABOLIC [id number] 20:19:00 Test Item Value Reference Range Interpretation Comments SODIUM (BEAKER) 140 meq/L 135-148 (test code = 381) POTASSIUM (BEAKER) 4.1 meq/L 3.6-5.5 Specimen moderately (test code = 379) hemolyzed CHLORIDE (BEAKER) 106 meq/L 98-106 (test code = 382) CO2 (BEAKER) (test 24 meq/L 20-29 code = 355) BLOOD UREA NITROGEN 8 mg/dL 10-26 L (BEAKER) (test code = 354) CREATININE (BEAKER) 0.83 mg/dL 0.50-1.20 Specimen moderately (test code = 358) hemolyzed GLUCOSE RANDOM 85 mg/dL 70-110 (BEAKER) (test code = 652) CALCIUM (BEAKER) 9.1 mg/dL 8.5-10.5 (test code = 697) EGFR (BEAKER) (test 86 mL/min/1.73 ESTIMA ARSENIO GFR IS code = 1092) sq m NOT ACCURATE CREATININE CLEARANCE IN PREDICTING GLOMERULAR FILTRATION RATE . ESTIMATED GFR I S NOT APPLICABLE FOR DIALYSIS PATIEN TS. Clinical Quality Rn ID - [id number] ID - [id number] ID - [id number] ID - [id number] ID - [id number] ID - [id number] ID - [id number] ID - [id number] ID - [id number] ID - [id number] ID - [id number] ID - [id number] with platelet count + automated [id number] 20:08:00 Test Item Value Reference Range Interpretation Comments WBC (test code = 6690-2) 7.8 See_Comment [A utomated message] The system [employer] generated this result transmitted ref erence range: 4.0 - 10 .0 K/L. The refe rence range was not u sed to interpret this result as normal/abnor mal. RBC (test code = 789-8) 4.22 See_Comment [Au tomated message] The system [employer] generated this result transmitted ref erence range: 4.00 - 5 .00 M/L. The refe rence range was not u sed to interpret this result as normal/abnor mal. MCHC (test code = 786-4) 29.9 See_Comment L [A utomated message] The system [employer] generated this result transmitted ref erence range: 32.0 - 3 6.0 GM/DL. The refe rence range was not u sed to interpret this result as normal/abnor mal. Hematocrit (test code = 37.1 % 36.0-46.0 4544-3) MCV (test code = 787-2) 87.9 fL 82.0-99.0 MCH (test code = 785-6) 26.3 pg 27.0-33.0 L RDW (test code = 788-0) 15.1 % 12.0-15.0 H Platelets (test code = 294 See_Comment [Aut omated message] 777-3) The system [employer] generated this result transmitted ref erence range: 150 - 43 0 K/CU MM. The referen ce range was not u sed to interpret this result as normal/abnor mal. MPV (test code = 9.8 fL 6.0-11.5 74466-8) nRBC (test code = 413) 0 See_Comment [Aut omated message] The system [employer] generated this result transmitted ref erence range: 0 - 0 /1 00 WBC. The refere nce range was not u sed to interpret this result as normal/abnor mal. % Neutros (test code = 47 % 429) % Lymphs (test code = 40 % 430) % Monos (test code = 9 % 431) % Eos (test code = 432) 3 % % Baso (test code = 437) 0 % # Neutros (test code = 3.68 See_Comment [Aut omated message] 670) The system [employer] generated this result transmitted ref erence range: 1.80 - 8 .00 K/L. The refe rence range was not u sed to interpret this result as normal/abnor mal. # Lymphs (test code = 3.11 See_Comment [Auto mated message] 414) The system [employer] generated this result transmitted ref erence range: 1.48 - 4 .50 K/L. The refe rence range was not u sed to interpret this result as normal/abnor mal. # Monos (test code = 0.73 See_Comment [Autom ated message] 415) The system [employer] generated this result transmitted ref erence range: 0.00 - 1 .30 K/L. The refe rence range was not u sed to interpret this result as normal/abnor mal. # Eos (test code = 416) 0.21 See_Comment [Au tomated message] The system [employer] generated this result transmitted ref erence range: 0.00 - 0 .50 K/L. The refe rence range was not u sed to interpret this result as normal/abnor mal. # Baso (test code = 417) 0.03 See_Comment [A utomated message] The system [employer] generated this result transmitted ref erence range: 0.00 - 0 .20 K/L. The refe rence range was not u sed to interpret this result as normal/abnor mal. Immature 0 % 0-0 Granulocytes-Relative (test code = 2801) Lab Interpretation (test Abnormal code = 85376-6) [facility] W/PLT COUNT & AUTO [id number] 20:08:00 Test Item Value Reference Range Interpretation Comments WHITE BLOOD CELL COUNT (BEAKER) 7.8 K/ L 4.0-10.0 (test code = 775) RED BLOOD CELL COUNT (BEAKER) 4.22 M/ L 4.00-5.00 (test code = 761) HEMOGLOBIN (BEAKER) (test code = 11.1 GM/DL 12.0-15.5 L 410) HEMATOCRIT (BEAKER) (test code = 37.1 % 36.0-46.0 411) MEAN CORPUSCULAR VOLUME (BEAKER) 87.9 fL 82.0-99.0 (test code = 753) MEAN CORPUSCULAR HEMOGLOBIN 26.3 pg 27.0-33.0 L (BEAKER) (test code = 751) MEAN CORPUSCULAR HEMOGLOBIN CONC 29.9 GM/DL 32.0-36.0 L (BEAKER) (test code = 752) RED CELL DISTRIBUTION WIDTH 15.1 % 12.0-15.0 H (BEAKER) (test code = 412) PLATELET COUNT (BEAKER) (test 294 K/CU MM 150-430 code = 756) MEAN PLATELET VOLUME (BEAKER) 9.8 fL 6.0-11.5 (test code = 754) NUCLEATED RED BLOOD CELLS 0 /100 WBC 0-0 (BEAKER) (test code = 413) NEUTROPHILS RELATIVE PERCENT 47 % (BEAKER) (test code = 429) LYMPHOCYTES RELATIVE PERCENT 40 % (BEAKER) (test code = 430) MONOCYTES RELATIVE PERCENT 9 % (BEAKER) (test code = 431) EOSINOPHILS RELATIVE PERCENT 3 % (BEAKER) (test code = 432) BASOPHILS RELATIVE PERCENT 0 % (BEAKER) (test code = 437) NEUTROPHILS ABSOLUTE COUNT 3.68 K/ L 1.80-8.00 (BEAKER) (test code = 670) LYMPHOCYTES ABSOLUTE COUNT 3.11 K/ L 1.48-4.50 (BEAKER) (test code = 414) MONOCYTES ABSOLUTE COUNT (BEAKER) 0.73 K/ L 0.00-1.30 (test code = 415) EOSINOPHILS ABSOLUTE COUNT 0.21 K/ L 0.00-0.50 (BEAKER) (test code = 416) BASOPHILS ABSOLUTE COUNT (BEAKER) 0.03 K/ L 0.00-0.20 (test code = 417) IMMATURE GRANULOCYTES-RELATIVE 0 % 0-0 PERCENT (BEAKER) (test code = 2801) CT, CHEST WITH IV CONTRAST- PE TEST [id number] 16:31:00Reason for exam:- >SHORTNESS OF BREATHpt complains of SOB that has been going on since being released from [facility] in [facility] the patient ?->NoWhat is the patient's sedation requirement?->No SedationFINAL REPORT CT CHEST WITH CONTRAST (PE PROTOCOL) History provided: Acute chestpain, suspected pulmonary embolism, shortness of breath TECHNIQUE: Spiral CT cuts were performed through the chest during rapid IV contrast administration. FINDINGS: Lungs are fully expanded and clear.Heart is normal in size. No pleural or pericardial effusion. No hilar or mediastinal mass or lymphadenopathy. Pulmonary arteries opacify satisfactorily and show no evidence of emboli. Thoracic aorta shows no evidence of aneurysm or dissection. IMPRESSION: Normal examination. COMMENT: This exam was performed according to our departmental dose-optimization program, which includes automated exposure control, adjustment of the mA and/or kV according to patient size and/or use of iterative reconstructiontechnique. Signed: Enoc Trujillo [facility] Verified Date/Time: 09/25/2017 16:31:11 Reading Location: [facility] Diagnostic Imaging Reading Room - [facility] [phone] B-TYPE NATRIURETIC FACTOR (BNP) 2017-09-25 15:34:00 Test Item Value Reference Range Interpretation Comments B-TYPE NATRIURETIC PEPTIDE (BEAKER) 8 pg/mL 0-100 (test code = 700) CREATINE KINASE (CK), TOTAL AND [id number] 15:30:00 Test Item Value Reference Range Interpretation Comments CREATINE KINASE TOTAL (BEAKER) 119 U/L 25-235 (test code = 380) CREATINE KINASE-MB (BEAKER) (test 0.7 ng/mL 0.0-4.9 code = 750) CREATINE KINASE-MB INDEX (BEAKER) 0.6 % (test code = 395) CK-MB Reference Range:<5 Normal5-10 Borderline>10 AbnormalTROPONIN I 2017-09-25 15:30:00 Test Item Value Reference Range Interpretation Comments TROPONIN I (BEAKER) (test code = 397) < ng/mL 0.00-0.03 Effective 02/04/2017: Reference Range ChangeNew: 0.00-0.03 ng/mL (Previous: 0.00-0.15 ng/mL)Reason for change: Updated to reflect the current testing platformTroponin I (TnI) levels must be interpretedin the context of the presenting symptoms and the clinical findings. Elevated TnI levels indicate donna cardial damage, but are not specific for ischemic heart disease. Elevated TnI levels are seen in patients with other cardiac conditions (including myocarditis and congestive heart failure), and slight TnI elevations occur in patients with other conditions, including sepsis, renal failure, acidosis, acute neurological disease, and persistent tachyarrythmia.[id number] 15:24:00 Test Item Value Reference Range Interpretation Comments D-DIMER QUANTITATIVE (BEAKER) 0.96 MG/L FEU <0.50 H (test code = 671) REGARDING D-DIMER RESULTS: The 98% NPV (Negative Predictive Value) for DVT/PE exclusion is 0.50 mg/LFEU as suggested by the clinical quality rn and as approved by the FDA.BASIC METABOLIC [id number] 15:20:00 Test Item Value Reference Range Interpretation Comments SODIUM (BEAKER) 142 meq/L 135-148 (test code = 381) POTASSIUM (BEAKER) 3.8 meq/L 3.6-5.5 (test code = 379) CHLORIDE (BEAKER) 110 meq/L 98-106 H (test code = 382) CO2 (BEAKER) (test 21 meq/L 20-29 code = 355) BLOOD UREA NITROGEN 12 mg/dL 10-26 (BEAKER) (test code = 354) CREATININE (BEAKER) 0.91 mg/dL 0.50-1.20 (test code = 358) GLUCOSE RANDOM 157 mg/dL 70-110 H (BEAKER) (test code = 652) CALCIUM (BEAKER) 10.7 mg/dL 8.5-10.5 H (test code = 697) EGFR (BEAKER) (test 78 mL/min/1.73 ESTIMA ARSENIO GFR IS code = 1092) sq m NOT ACCURATE CREATININE CLEARANCE IN PREDICTING GLOMERULAR FILTRATION RATE . ESTIMATED GFR I S NOT APPLICABLE FOR DIALYSIS PATIEN TS. CBC W/PLT COUNT & AUTO [id number] 15:12:00 Test Item Value Reference Range Interpretation Comments WHITE BLOOD CELL COUNT (BEAKER) 5.8 K/ L 4.0-10.0 (test code = 775) RED BLOOD CELL COUNT (BEAKER) 4.28 M/ L 4.00-5.00 (test code = 761) HEMOGLOBIN (BEAKER) (test code = 12.6 GM/DL 12.0-15.0 410) HEMATOCRIT (BEAKER) (test code = 39.2 % 36.0-45.0 411) MEAN CORPUSCULAR VOLUME (BEAKER) 91.6 fL 82.0-99.0 (test code = 753) MEAN CORPUSCULAR HEMOGLOBIN 29.4 pg 27.0-33.0 (BEAKER) (test code = 751) MEAN CORPUSCULAR HEMOGLOBIN CONC 32.1 GM/DL 32.0-36.0 (BEAKER) (test code = 752) RED CELL DISTRIBUTION WIDTH 13.1 % 10.3-14.2 (BEAKER) (test code = 412) PLATELET COUNT (BEAKER) (test 356 K/CU MM 150-430 code = 756) MEAN PLATELET VOLUME (BEAKER) 9.6 fL 6.5-10.5 (test code = 754) NUCLEATED RED BLOOD CELLS 0 /100 WBC 0-0 (BEAKER) (test code = 413) NEUTROPHILS RELATIVE PERCENT 82 % (BEAKER) (test code = 429) LYMPHOCYTES RELATIVE PERCENT 16 % (BEAKER) (test code = 430) MONOCYTES RELATIVE PERCENT 1 % (BEAKER) (test code = 431) EOSINOPHILS RELATIVE PERCENT 0 % (BEAKER) (test code = 432) BASOPHILS RELATIVE PERCENT 0 % (BEAKER) (test code = 437) NEUTROPHILS ABSOLUTE COUNT 4.80 K/ L 1.80-8.00 (BEAKER) (test code = 670) LYMPHOCYTES ABSOLUTE COUNT 0.96 K/ L 1.48-4.50 L (BEAKER) (test code = 414) MONOCYTES ABSOLUTE COUNT (BEAKER) 0.08 K/ L 0.00-1.30 (test code = 415) EOSINOPHILS ABSOLUTE COUNT 0.00 K/ L 0.00-0.50 (BEAKER) (test code = 416) BASOPHILS ABSOLUTE COUNT (BEAKER) 0.00 K/ L 0.00-0.20 (test code = 417) RAD, CHEST, 1 VIEW, NON [id number] 14:40:00Reason for exam:->SHORTNESS OF BREATHpt complains of SOB that has been going on since being released from [facility] in [facility] the patient ?->NoShould this be performed at the bedside?->YesFINAL REPORT Chest, AP view. History: Shortness of breath. Comparison: None available. Discussion: The cardiomediastinal silhouette and pulmonary vasculature are within normal limits. The lungs are clear without evidence of consolidation or effusion. There are no acute osseous abnormalities. The soft tissues are unremarkable. IMPRESSION: No acute cardiopulmonary abnormality. Signed: Deo Castro MDR[facility] Verified Date/Time: 09/25/2017 14:40:58 Reading Location: [facility] Mammo Reading Room
[2022-06-26 17:28] LABS: Specific Gravity 1.005 (1.005-1.030); Urine Bilirubin NEGATIVE (Negative); Urine Blood Negative (Negative); Urine Clarity Clear (Clear); Urine Color Colorless (Yellow); Urine Glucose NEGATIVE (Negative); Urine Protein NEGATIVE (Negative); Urine Urobilinogen Normal (Normal); Urine pH 5.5 (5.0-7.0)
--- NOTE | 2022-06-26 17:33 | ER ---
Nurse's Notes [facility] Name: Piotr Gupta Age: 57 yrs Sex: Female : 1965 Arrival Date: 06/26/2022 Time: 14:15 Bed 3 Private MD: Diagnosis: Retention of urine, unspecified Presentation: 06/26 14:46 Chief complaint: Chief complaint: Patient states: she had a echo seal procedure on ap3 06/21/22, and her urinary catheter was removed yesterday 06/25/2022. patient states that at first she was able to urinate, however now she can not, and she feels a lot of pressure. 14:46 Coronavirus screen: At this time, the client does not indicate any symptoms associated ap3 with coronavirus-19. Ebola Screen: No symptoms or risks identified at this time. Initial Sepsis Screen: Does the patient meet any 2 criteria? HR > 90 bpm. Does the patient have a suspected source of infection? Yes: Dysuria/Frequency/Urgency/UTI. Risk Assessment: Do you want to hurt yourself or someone else? Patient reports no desire to harm self or others. Onset of symptoms was June 26, 2022. 14:46 Method Of Arrival: Ambulatory ap3 14:46 Acuity: NICK 3 ap3 Triage Assessment: 14:49 General: Appears uncomfortable, Behavior is calm, cooperative, appropriate for age. ap3 Pain: Complains of pain in suprapubic area, right lower quadrant and left lower quadrant Quality of pain is described as pressure. Pain: Pain currently is 9 out of 10 on a pain scale. Pain began gradually. Neuro: Level of Consciousness is awake, alert, obeys commands, Oriented to person, place, time, situation. Cardiovascular: Patient's skin is warm and dry. Respiratory: Airway is patent Respiratory effort is even, unlabored, Respiratory pattern is regular, symmetrical. : Reports inability to void, since progressively got worse this morning. Historical: - Allergies: 14:49 No Known Allergies; ap3 - PMHx: 14:49 None; ap3 - PSHx: 14:49 bladder lift; hysterectomy-1999; ap3 - Immunization history:: Client reports receiving the 2nd dose of the Covid vaccine. - Social history:: Smoking status: Patient denies any tobacco usage or history of. Screenin:51 Abuse screen: Denies threats or abuse. Nutritional screening: No deficits noted. ap3 Tuberculosis screening: No symptoms or risk factors identified. Assessment: 17:59 Reassessment: Patient appears in no apparent distress at this time. Patient and/or iw family updated on plan of care and expected duration. Pain level reassessed. Patient is alert, oriented x 3, equal unlabored respirations, skin warm/dry/pink. Vital Signs: 14:46 BP 165 / 105; Pulse 121; Resp 17; Temp 98.5; Pulse Ox 100% ; Weight 72.57 kg; Height 5 ap3 ft. 5 in. ; Pain 9/10; 17:59 BP 141 / 87; Pulse 97; Resp 16; Pulse Ox 98% ; iw 14:46 Body Mass Index 26.63 (72.57 kg, 165.1 cm) ap3 14:46 Pain Scale: Adult ap3 ED Course: 14:17 Patient arrived in ED. rg4 14:34 Alexander Goldman DO is Attending Physician. ms3 14:49 Triage completed. ap3 14:50 Arm band placed on right wrist. ap3 17:58 Elana Bobby, RN is Primary Nurse. iw 17:59 Patient did not have IV access during this emergency room visit. iw Administered Medications: No medications were administered Medication: 17:59 VIS not applicable for this client. iw Outcome: 17:32 Discharge ordered by . ms3 18:00 Patient left the ED. iw Signatures: Elana Bobby, DARREN BANKS iw Kristin Pitts rg4 Katherine Davalos RN RN ap3 Alexander Goldman DO DO ms3 Corrections: (The following items were deleted from the chart) 14:49 14:46 Chief complaint: ap3 ap3
--- NOTE | 2022-06-26 17:33 | EDPHYS ---
Physician Documentation [facility] Name: Piotr Gupta Age: 57 yrs Sex: Female : 1965 Arrival Date: 06/26/2022 Time: 14:15 Bed 3 Private MD: ED Physician Alexander Goldman HPI: 06/26 17:34 This 57 yrs old Black Female presents to ER via Ambulatory with complaints of Urinary ms3 Problem. 17:34 57-year-old female with no past medical history presents for urinary retention. Patient ms3 states she had bladder lift surgery on . Patient states she had to have a catheter placed secondary to her inability to void. Patient states this morning she developed 9/10 and a pressure in her suprapubic area. Patient denies alleviating or inciting factors. Patient states she feels the need to urinate.. Historical: - Allergies: 14:49 No Known Allergies; ap3 - PMHx: 14:49 None; ap3 - PSHx: 14:49 bladder lift; hysterectomy-1999; ap3 - Immunization history:: Client reports receiving the 2nd dose of the Covid vaccine. - Social history:: Smoking status: Patient denies any tobacco usage or history of. ROS: 17:34 Positive for Inability to urinate. ms3 17:34 Constitutional: Negative for fever, and chills. Cardiovascular: Negative for chest pain, and palpitations. Respiratory: Negative for shortness of breath, cough, wheezing, and pleuritic chest pain, Abdomen/GI: Negative for abdominal pain, nausea, vomiting, diarrhea, and constipation. 17:34 All other systems are negative. Exam: 17:34 Constitutional: This is a well developed, well nourished patient who is awake, alert, ms3 and in no acute distress. Head/Face: Normocephalic, atraumatic. Neck: Trachea midline, no cervical lymphadenopathy. Supple, full range of motion without nuchal rigidity, or vertebral point tenderness. No Meningismus. Chest/axilla: Normal chest wall appearance and motion. Nontender with no deformity. Cardiovascular: Regular rate and rhythm with a normal S1 and S2. No gallops, murmurs, or rubs. Normal PMI, no JVD. No pulse deficits. Respiratory: Lungs have equal breath sounds bilaterally, clear to auscultation and percussion. No rales, rhonchi or wheezes noted. No increased work of breathing, no retractions or nasal flaring. 17:34 Skin: Warm, dry with normal turgor. Normal color with no rashes, no lesions, and no evidence of cellulitis. 17:34 Abdomen/GI: Inspection: abdomen appears normal, Bowel sounds: normal, Palpation: moderate abdominal tenderness, in the suprapubic area. Vital Signs: 14:46 BP 165 / 105; Pulse 121; Resp 17; Temp 98.5; Pulse Ox 100% ; Weight 72.57 kg; Height 5 ap3 ft. 5 in. ; Pain 9/10; 17:59 BP 141 / 87; Pulse 97; Resp 16; Pulse Ox 98% ; iw 14:46 Body Mass Index 26.63 (72.57 kg, 165.1 cm) ap3 14:46 Pain Scale: Adult ap3 MDM: 14:58 Patient medically screened. ms3 17:34 Differential diagnosis: urinary tract infection, Urinary retention. Data reviewed: ms3 vital signs, nurses notes, lab test result(s), and as a result, I will discharge patient. Counseling: I had a detailed discussion with the patient and/or guardian regarding: the historical points, exam findings, and any diagnostic results supporting the discharge/admit diagnosis, lab results, the need for outpatient follow up, to return to the emergency department if symptoms worsen or persist or if there are any questions or concerns that arise at home. ED course: Discussed urinalysis results with patient. 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 Patient understands and agrees with plan. All questions were answered. Return precautions discussed include worsening symptoms, or any other concerns. 06/26 14:58 Order name: Urinalysis w/ reflexes; Complete Time: 17:31 ms3 06/26 14:58 Order name: Castaneda Leg Bag; Complete Time: 17:11 ms3 Administered Medications: No medications were administered Disposition Summary: 06/26/22 17:32 Discharge Ordered Location: Home ms3 Condition: Stable ms3 Diagnosis - Retention of urine, unspecified ms3 Followup: ms3 - With: Private Physician - When: 2 - 3 days - Reason: Recheck today's complaints Discharge Instructions: - Discharge Summary Sheet ms3 - Acute Urinary Retention, Female ms3 Forms: - Medication Reconciliation Form ms3 - Thank You Letter ms3 - Antibiotic Education ms3 - Prescription Opioid Use ms3 Signatures: Dispatcher [employer] Katherine Blackwood RN RN ap3 Alexander Goldman DO DO ms3
[2022-06-26 18:55] VITALS: TEMP 98.5
[2022-06-26 18:56] VITALS: BP 141/87; O2SAT 98
== END 2022-06-26 18:00 | disposition home or self-care (01) ==
LOC: ER 14:15
DX: R33.9 Retention of urine, unspecified (principal); Z98.890 Other specified postprocedural states
CPT/HCPCS: 81003; 99281